=== PATIENT | male | born 1975 | race Caucasian/White ===

== ENCOUNTER 2016-08-05 14:04 | Inpatient (IN) | payer MEDICARE ==
--- NOTE | 2016-08-05 14:40 | HP ---
SUPERVISING PHYSICIAN: Todd Mancini MD CHIEF COMPLAINT: Lesion on bilateral feet. HISTORY OF PRESENT ILLNESS: This is a 41-year-old male patient who has a significant history of uncontrolled diabetes mellitus as well as a significant history of cellulitis to his feet. He was at the [employer] meet two weeks ago where he watched his son compete in [place] and walked on his feet for long periods of time in new shoes and developed a blister on the medial aspects of both the right and left great toe. The sores continued to worsen to the point that he came to see his primary care physician today, Dr. James Gaviria. Dr. Gaviria did some lab at the clinic. His white blood cell count was 19.5 with hemoglobin 15.4, hematocrit 43.6, sedate 73. His blood glucose was 263, BUN 12 , creatinine 1, sodium 136, potassium 4.5, chloride 95. I was called for admission for cellulitis. PAST MEDICAL HISTORY: 1. Diabetes mellitus, type 2. 2. Hypertension. 3. Coronary artery disease. 4. Congestive heart failure of unknown etiology. 5. Moderate depression. 6. Hyperlipidemia. 7. Previous myocardial infarction in 2010. PAST SURGICAL HISTORY: 1. Left elbow surgery. 2. Cardiac stent in 2010. CURRENT MEDICATIONS: Per the EMR and awaiting verification. ALLERGIES: METFORMIN. CODE STATUS: Full. FAMILY HISTORY: Positive for colonic polyps and lung cancer. SOCIAL HISTORY: Patient is disabled due to his heart attack in 2010.The patient chews tobacco. He denies smoking cigarettes, ETOH or illicit drug use. He does have a distant history of IV drug use. REVIEW OF SYSTEMS: GENERAL: Positive for fever and chills. Negative for any weight changes. HEENT: Denies sinus symptoms, ear pain, vision changes or sore throat. RESPIRATORY: Denies wheezing, coughing or shortness of breath. CARDIAC: Denies chest pain, palpitations or tachycardia. GASTROINTESTINAL: Denies nausea, vomiting, diarrhea, or abdominal pain. NEUROLOGIC: Positive for numbness in his feet. Negative for headaches, dizziness, or seizures. PHYSICAL EXAMINATION: VITAL SIGNS: Afebrile. Pulse 96. Blood pressure 113/70. Respiratory rate 18. O2 saturation 91% on room air. GENERAL: This is a 41-year-old, obese, male patient who is lying in his hospital bed. He is in no acute distress. HEENT: Normocephalic, atraumatic. Pupils are equal and reactive. Oropharynx is clear. NECK: Supple without mass. RESPIRATORY: Clear to auscultation bilaterally. CHEST: There is equal rise and fall of the chest with inspiration and expiration. CARDIOVASCULAR: Regular rate and rhythm. ABDOMEN: Rounded, soft, nondistended, nontender. Bowel sounds are positive. EXTREMITIES: He has a large, 8 cm wound to his right medial portion of his foot that extends down to the right great toe. There is a large necrotic area in the middle of it, about 2 cm in diameter, with very dried, hardened skin around it. The erythema extends up to the top of his foot as well as to the heel. It is warm. There is no fluctuance. The left foot has a smaller lesion that extends from the medial portion of his left great toe to the arch that has some erythema. There is no fluctuance. It also has dried skin surrounding the sore. His bilateral pedal pulses are very faint, but they are palpable. LABORATORY: Labs are per history of present illness, plus his hemoglobin A1c is 13.1. ASSESSMENT: 1. Cellulitis of the right and left foot. 2. Leukocytosis with elevated sedrate of 73. 3. Diabetes mellitus, poorly controlled, on insulin and Victoza. 4. Congestive heart failure. 5. Coronary artery disease. 6. Mild depression. PLAN: We will admit the patient to the hospital. I have consulted Dr. Coley. I have started him on vancomycin, Zosyn, and Flagyl. I have repeated labs in the morning. It is to be noted that his Levemir insulin had about one year ago and his Humalog insulin five years ago. I am not quite sure he was taking his insulin as ordered and if he was taking it as ordered, I am not sure it was effective dosing. I have started him on the hospital sliding scale insulin protocol. He usually gets 40 units of Levemir at night. I am going to give him 25 units of Levemir insulin tonight and we will check his sugars tomorrow. I am going to be careful about his dosing because of the inconsistency in his home dosing. I have given him a liter of fluids. I have started him on Protonix for ulcer prophylaxis as well as Lovenox for DVT prophylaxis. We will continue to monitor the patient closely and followup as needed. Dr. Mancini is the collaborating physician and available for consultation. #[id number] [facility]
[2016-08-05] MEDS ORDERED: SODIUM CHLORIDE 0.9% 1000ML 1,000 ML IVS PRN (15:45)
[2016-08-05] MEDS ORDERED: GLUCAGON INJ 1 MG VIAL SUBCU PRN (15:52)
[2016-08-05] MEDS ORDERED: DEXTROSE 50% 25 GM/50 ML SYG IV PRN (15:52)
[2016-08-05] MEDS ORDERED: metroNIDAZOLE IV PREMIX 500MG 500 MG in PREMIX BAG 1 BAG IVPB SCH (16:00)
[2016-08-05] MEDS ORDERED: VANCOMYCIN PER PHARMACY INJ SCH (16:00)
[2016-08-05] MEDS ORDERED: metroNIDAZOLE IV PREMIX 500MG 100 ML IVPB ONE (16:23)
[2016-08-05] MEDS: metroNIDAZOLE IV PREMIX 500MG 500 MG in PREMIX BAG 1 BAG IVPB SCH (16:32)
[2016-08-05] MEDS: IV SET AND CAP CHANGE INJ INJ SCH (16:35)
[2016-08-05] MEDS: INSULIN LISPRO 100 UNITS/ML PEN SUBCU SCH ×2 (17:12→21:28)
[2016-08-05] MEDS ORDERED: PIPERACILLIN/TAZOBACTAM 3.375 GM VIAL IVPB ONE (19:46)
[2016-08-05] MEDS ORDERED: SODIUM CHLORIDE 0.9% 100ML 100 ML IVPB ONE (19:47)
[2016-08-05] MEDS: PIPERACILLIN/TAZOBACTAM 3.375 GM in SODIUM CHLORIDE 0.9% 100ML 100 ML IVPB SCH (19:59)
[2016-08-05] MEDS ORDERED: SODIUM CHLORIDE 0.9% 250ML 250 ML ONE (21:18)
[2016-08-05] MEDS ORDERED: VANCOMYCIN HCL INJ 1,000 MG VIAL IVPB ONE (21:18)
[2016-08-05] MEDS: VANCOMYCIN HCL INJ 1,000 MG in SODIUM CHLORIDE 0.9% 250ML 250 ML IVPB SCH (21:21)
[2016-08-05] MEDS: BIFIDOBACTERIUM INFANTIS 4 MG CAP PO SCH (21:28)
[2016-08-05] MEDS ORDERED: INSULIN DETEMIR 100 UNITS/ML PEN SUBCU ONE ×2 (21:30→23:35)
[2016-08-05] MEDS: PANTOPRAZOLE SODIUM IV 40 MG VIAL IV SCH (23:43)
[2016-08-05] MEDS: ENOXAPARIN SODIUM 40 MG/0.4 ML SYG SUBCU SCH (23:47)
[2016-08-05] MEDS: CHLORHEXIDINE GLUCONATE 4 % 15 ML UD TOP SCH (23:48)
[2016-08-06] MEDS: PIPERACILLIN/TAZOBACTAM 3.375 GM in SODIUM CHLORIDE 0.9% 100ML 100 ML IVPB SCH ×5 (00:05→23:54)
[2016-08-06] MEDS ORDERED: metroNIDAZOLE IV PREMIX 500MG 100 ML IVPB ONE ×4 (00:49→17:23)
[2016-08-06] MEDS: metroNIDAZOLE IV PREMIX 500MG 500 MG in PREMIX BAG 1 BAG IVPB SCH ×3 (01:12→17:03)
[2016-08-06] MEDS: VANCOMYCIN HCL INJ 1,000 MG in SODIUM CHLORIDE 0.9% 250ML 250 ML IVPB SCH ×2 (03:00→10:58)
[2016-08-06] MEDS ORDERED: SODIUM CHLORIDE 0.9% 100ML 100 ML IVPB ONE ×4 (05:33→23:44)
[2016-08-06] MEDS ORDERED: PIPERACILLIN/TAZOBACTAM 3.375 GM VIAL IVPB ONE ×4 (05:33→23:43)
[2016-08-06] MEDS: SODIUM CHLORIDE 0.9% (FLUSH) 10 ML SYG IV PRN (06:00)
[2016-08-06] MEDS: INSULIN LISPRO 100 UNITS/ML PEN SUBCU SCH ×4 (08:03→21:31)
[2016-08-06] MEDS: BIFIDOBACTERIUM INFANTIS 4 MG CAP PO SCH ×2 (08:03→21:31)
[2016-08-06] MEDS ORDERED: SODIUM CHLORIDE 0.9% 250ML 250 ML ONE ×3 (10:35→17:21)
[2016-08-06] MEDS ORDERED: VANCOMYCIN HCL INJ 1,000 MG VIAL IVPB ONE ×2 (10:36→17:21)
[2016-08-06] MEDS: GABAPENTIN 300 MG CAP PO SCH ×2 (10:47→21:35)
[2016-08-06] MEDS: LISINOPRIL 10 MG TAB PO SCH (10:47)
[2016-08-06] MEDS: FUROSEMIDE 40 MG TAB PO SCH (10:47)
[2016-08-06] MEDS: CARVEDILOL 12.5 MG TAB PO SCH ×2 (10:47→21:31)
[2016-08-06] MEDS: INSULIN DETEMIR 100 UNITS/ML PEN SUBCU SCH ×2 (10:49→21:32)
[2016-08-06] MEDS: CITALOPRAM HBR 20 MG TAB PO SCH (10:50)
[2016-08-06] MEDS: LIRAGLUTIDE 1.8 MG SC SCH (10:57)
--- NOTE | 2016-08-06 11:49 | CONS ---
DATE OF CONSULTATION: 08/06/16 REFERRING PHYSICIAN: [facility]. HISTORY OF PRESENT ILLNESS: The patient is a 41-year-old male who was admitted yesterday with cellulitis of his feet. He was noted to have an elevated white blood cell count of 19,[address] Gaviria' clinic yesterday with a blood sugar of 263. He was admitted and placed on IV antibiotics. No culture was obtained as there was no drainage from the area. The patient does state he was wearing new shoes for his whole trip to watch his son through the shot at the [employer] two weeks ago. PAST MEDICAL HISTORY: 1. Diabetes mellitus. 2. Hypertension. 3. Coronary artery disease. 4. Congestive heart failure. 5. Depression. 6. Hyperlipidemia. PAST SURGICAL HISTORY: 1. Cardiac stent placement in 2010 associated with a myocardial infarction 2. Left elbow surgery. CURRENT MEDICATIONS: As listed in the nursing notes. ALLERGIES: METFORMIN. FAMILY HISTORY: Positive for carcinoma of the breast, carcinoma of the lung in a nonsmoking grandfather. History of colonic polyps. There is very little history of diabetes. There is history of hypertension. SOCIAL HISTORY: The patient has dipped, never smoked and does not use alcohol or drugs. He has a history of IV drug use many years ago. REVIEW OF SYSTEMS: Unremarkable. He has had fever and chills, but no weight loss. He denies polyuria, nausea, vomiting, change in bowel habits. PHYSICAL EXAMINATION: GENERAL: The patient is awake, alert, cooperative, in no acute distress. VITAL SIGNS: The patient is currently afebrile, normotensive. HEENT: Sclerae nonicteric. Mucous membranes moist. NECK: Without adenopathy. CHEST: Equal breath sounds bilaterally. HEART: Regular rate and rhythm. ABDOMEN: Soft and benign. EXTREMITIES: The right lower extremity has palpable dorsalis pedis and posterior tibialis pulses. Over the first metatarsal head, there is a large area of necrosis with a small amount of purulent drainage. There is surrounding erythema and a blister that is somewhat ecchymotic appearing which is dorsal to the ulceration. The left foot has a much smaller lesion over the left metatarsal head with no significant erythema currently. LABORATORY: Today, white count is down to 18 and hemoglobin A1c 13. ASSESSMENT: 1. Cellulitis of the right and left foot, right greater than left. RECOMMENDATION: We obtained a culture from the right foot. We will continue the antibiotics pending culture report. Agree with the Lovenox, Protonix and treatment of his blood sugars. #[id number] [facility]
[2016-08-06] MEDS: CHLORHEXIDINE GLUCONATE 4 % 15 ML UD TOP SCH (17:20)
[2016-08-06] MEDS ORDERED: PRAVASTATIN SODIUM 20 MG TAB ONE (17:23)
[2016-08-06] MEDS ORDERED: VANCOMYCIN HCL INJ 500 MG VIAL ONE (18:56)
[2016-08-06] MEDS: VANCOMYCIN HCL INJ 1,000 MG, VANCOMYCIN HCL INJ 250 MG in SODIUM CHLORIDE 0.9% 250ML 25... IVPB SCH (19:00)
[2016-08-06] MEDS: ENOXAPARIN SODIUM 40 MG/0.4 ML SYG SUBCU SCH (21:33)
[2016-08-06] MEDS: PRAVASTATIN SODIUM 20 MG TAB PO SCH (21:34)
[2016-08-06] MEDS: PANTOPRAZOLE SODIUM IV 40 MG VIAL IV SCH (21:34)
[2016-08-07] MEDS: metroNIDAZOLE IV PREMIX 500MG 500 MG in PREMIX BAG 1 BAG IVPB SCH ×3 (00:45→16:52)
[2016-08-07] MEDS: HYDROcodone 7.5MG/APAP 325MG 1 EA TAB PO PRN (02:02)
[2016-08-07] MEDS ORDERED: VANCOMYCIN HCL INJ 500 MG VIAL ONE ×3 (03:07→14:45)
[2016-08-07] MEDS ORDERED: SODIUM CHLORIDE 0.9% 250ML 250 ML ONE ×3 (03:08→14:45)
[2016-08-07] MEDS ORDERED: VANCOMYCIN HCL INJ 1,000 MG VIAL IVPB ONE ×3 (03:08→14:46)
[2016-08-07] MEDS: VANCOMYCIN HCL INJ 1,000 MG, VANCOMYCIN HCL INJ 250 MG in SODIUM CHLORIDE 0.9% 250ML 25... IVPB SCH ×2 (03:15→11:47)
[2016-08-07] MEDS ORDERED: SODIUM CHLORIDE 0.9% 100ML 100 ML IVPB ONE ×6 (05:25→17:19)
[2016-08-07] MEDS ORDERED: PIPERACILLIN/TAZOBACTAM 3.375 GM VIAL IVPB ONE ×5 (05:25→17:18)
[2016-08-07] MEDS: PIPERACILLIN/TAZOBACTAM 3.375 GM in SODIUM CHLORIDE 0.9% 100ML 100 ML IVPB SCH ×3 (05:53→17:53)
[2016-08-07] MEDS: INSULIN LISPRO 100 UNITS/ML PEN SUBCU SCH ×4 (07:59→21:07)
--- NOTE | 2016-08-07 08:02 | PN ---
SUPERVISING PHYSICIAN: James Gaviria MD DATE: 08/06/16 SUBJECTIVE: The patient is asleep in his bed. He awakens easily. I was with Dr. Coley as he examined his feet. Dr. Coley discussed his case with him and the treatment options. He has no complaints of shortness of breath, nausea, vomiting or diarrhea or constipation. OBJECTIVE: VITAL SIGNS: His temperature is 99.7, pulse rate 97, blood pressure 135/86, respiratory rate 16, 02 saturation 92% on room air. GENERAL: This is a 41 year-old obese male who is in no apparent distress. RESPIRATORY: Essentially clear to auscultation bilaterally. CARDIAC: regular rate and rhythm. ABDOMEN: Soft, nondistended, non-tender. Bowel sounds are positive. EXTREMITIES: The wounds to his bilateral lower feet are much improved since yesterday. The redness that extended up onto the top of his right foot is only surrounding the wound area and the redness has substantially decreased on the left foot as well. NEUROLOGICAL: He is awake, alert, and oriented x3. LABORATORY WBCs are down to 16.9 with his neutrophils at 72.3. Chemistries are basically within normal limits with the exception of his glucose has been running between 161 and 288. His preliminary blood cultures showed no growth after 24 hours. All other labs and films have been reviewed via the EMR. ASSESSMENT: 1. Cellulitis of the right and left foot. The right is greater than the left. 2. Leukocytosis. . 3. Diabetes mellitus, poorly controlled, on insulin and Victoza. 4. Congestive heart failure, unknown etiology. 5. Coronary artery disease. 6. Mild depression. PLAN: We will continue present supportive care. I will defer his wound care to Dr. Coley. We walled continue his vancomycin and Zosyn and Flagyl. We obtained a wound culture today so we will monitor the results of those as the become available. I have started all of his home medications except that I have started hospital sliding scale Humalog insulin. His Levemir and Victoza have been restarted. I have ordered a BNP and CBC and sed rate tomorrow. On discharge he will need a referral to Dr. Zaldivar who is a it service manager for shoe inserts and possible diabetic shoes. He will also need a followup with Dr. Soler, his insurance office supervisor. We will continue to follow patient closely and follow as needed. Dr. Gaviria is the collaborating physician available for consultation. #[id number] [facility]
[2016-08-07] MEDS ORDERED: metroNIDAZOLE IV PREMIX 500MG 100 ML IVPB ONE ×3 (08:16→17:18)
[2016-08-07] MEDS: POTASSIUM CHLORIDE 10 MEQ TAB PO SCH (08:34)
[2016-08-07] MEDS: BIFIDOBACTERIUM INFANTIS 4 MG CAP PO SCH ×2 (09:46→20:55)
[2016-08-07] MEDS: CARVEDILOL 12.5 MG TAB PO SCH ×2 (09:47→20:55)
[2016-08-07] MEDS: FUROSEMIDE 40 MG TAB PO SCH (09:47)
[2016-08-07] MEDS: LISINOPRIL 10 MG TAB PO SCH (09:47)
[2016-08-07] MEDS: CHLORHEXIDINE GLUCONATE 4 % 15 ML UD TOP SCH (09:47)
[2016-08-07] MEDS: CITALOPRAM HBR 20 MG TAB PO SCH (09:47)
[2016-08-07] MEDS: GABAPENTIN 300 MG CAP PO SCH ×2 (09:48→20:55)
[2016-08-07] MEDS: LIRAGLUTIDE 1.8 MG SC SCH (09:48)
[2016-08-07] MEDS: INSULIN DETEMIR 100 UNITS/ML PEN SUBCU SCH ×2 (09:49→21:08)
[2016-08-07] MEDS: SODIUM CHLORIDE 0.9% (FLUSH) 10 ML SYG IV PRN (09:51)
[2016-08-07] MEDS: PANTOPRAZOLE SODIUM TAB 40 MG PO SCH (11:49)
--- NOTE | 2016-08-07 19:09 | PN ---
DATE: 08/07/16 SUPERVISING PHYSICIAN: James Gaviria M.D. SUBJECTIVE: The patient is lying in bed. He is asleep. He awakens easily. He has no complaints of shortness of breath, nausea, vomiting, diarrhea or chest pain. OBJECTIVE: VITAL SIGNS: He is afebrile, heart rate 88, blood pressure 122/79, respiratory rate 20, O2 sat is 95%. RESPIRATORY: Essentially clear to auscultation bilaterally. CARDIAC: Regular rate and rhythm. ABDOMEN: Soft, nondistended, non-tender. Bowel sounds are positive. EXTREMITIES: Bilateral pedal pulses are palpable +1 to +2. The left foot has a dressing on it that is dry and intact. The right foot wound has a blister that is fluid-filled and quite larger than it was yesterday. Dr. Coley has aspirated a large amount of purulent sanguinous fluid and has sent it for culture. The erythema around the right foot wound is much improved and the area of eschar has a small portion of it that is starting to drain and softening up. NEUROLOGIC: He is awake, alert and oriented times three. LABORATORY: WBCs are 16.2, ESR is 11. BMP is basically within normal limits with the exception of his glucoses have been running from 150 to 230. Wound culture from yesterday requires further incubation. Preliminary blood cultures after 48 hours show no growth. All other labs and films have been reviewed via the EMR. ASSESSMENT: 1. Cellulitis of the right and left foot, the right is greater than the left. 2. Leukocytosis that is slightly improving. 3. Diabetes mellitus poorly controlled on insulin and Victoza. 4. Congestive heart failure of unknown etiology. 5. Coronary artery disease. 6. Mild depression. PLAN: We will continue present supportive care, including vancomycin, Zosyn and Flagyl. Wound care orders will be per Dr. Coley. He has 2 wound cultures that are now pending. We will monitor those results. I will order a CBC for tomorrow. I have encouraged good pulmonary hygiene. He will need a Dr. Zaldivar , podiatry consultation on discharge for some inserts for shoes. Otherwise we will continue to monitor the patient closely and followup as needed. #[id number] [facility]
[2016-08-07] MEDS: ENOXAPARIN SODIUM 40 MG/0.4 ML SYG SUBCU SCH (20:56)
[2016-08-07] MEDS: PRAVASTATIN SODIUM 20 MG TAB PO SCH (20:56)
[2016-08-07] MEDS: VANCOMYCIN HCL INJ 1,000 MG, VANCOMYCIN HCL INJ 500 MG in SODIUM CHLORIDE 0.9% 250ML 25... IVPB SCH (22:43)
[2016-08-08] MEDS: PIPERACILLIN/TAZOBACTAM 3.375 GM in SODIUM CHLORIDE 0.9% 100ML 100 ML IVPB SCH ×5 (00:45→17:53)
[2016-08-08] MEDS: metroNIDAZOLE IV PREMIX 500MG 500 MG in PREMIX BAG 1 BAG IVPB SCH ×4 (01:41→17:03)
[2016-08-08] MEDS ORDERED: SODIUM CHLORIDE 0.9% 100ML 100 ML IVPB ONE ×4 (05:38→19:58)
[2016-08-08] MEDS ORDERED: PIPERACILLIN/TAZOBACTAM 3.375 GM VIAL IVPB ONE ×4 (05:38→19:57)
[2016-08-08] MEDS: PANTOPRAZOLE SODIUM TAB 40 MG PO SCH (06:31)
[2016-08-08] MEDS ORDERED: metroNIDAZOLE IV PREMIX 500MG 0 ML IVPB ONE (07:37)
[2016-08-08] MEDS ORDERED: VANCOMYCIN HCL INJ 500 MG VIAL ONE ×2 (07:39→19:56)
[2016-08-08] MEDS ORDERED: VANCOMYCIN HCL INJ 1,000 MG VIAL IVPB ONE ×2 (07:40→19:58)
[2016-08-08] MEDS ORDERED: SODIUM CHLORIDE 0.9% 250ML 250 ML ONE ×2 (07:40→19:56)
[2016-08-08] MEDS: INSULIN LISPRO 100 UNITS/ML PEN SUBCU SCH ×4 (07:50→21:30)
[2016-08-08] MEDS: POTASSIUM CHLORIDE 10 MEQ TAB PO SCH (08:06)
[2016-08-08] MEDS: CARVEDILOL 12.5 MG TAB PO SCH ×2 (08:38→20:59)
[2016-08-08] MEDS: GABAPENTIN 300 MG CAP PO SCH ×2 (08:38→20:59)
[2016-08-08] MEDS: LISINOPRIL 10 MG TAB PO SCH (08:38)
[2016-08-08] MEDS: CITALOPRAM HBR 20 MG TAB PO SCH (08:38)
[2016-08-08] MEDS: BIFIDOBACTERIUM INFANTIS 4 MG CAP PO SCH ×2 (08:39→20:59)
[2016-08-08] MEDS: LIRAGLUTIDE 1.8 MG SC SCH (08:39)
[2016-08-08] MEDS: INSULIN DETEMIR 100 UNITS/ML PEN SUBCU SCH ×2 (08:39→21:30)
[2016-08-08] MEDS: FUROSEMIDE 40 MG TAB PO SCH (08:39)
[2016-08-08] MEDS: CHLORHEXIDINE GLUCONATE 4 % 15 ML UD TOP SCH (08:40)
[2016-08-08] MEDS: VANCOMYCIN HCL INJ 1,000 MG, VANCOMYCIN HCL INJ 500 MG in SODIUM CHLORIDE 0.9% 250ML 25... IVPB SCH ×2 (11:10→22:49)
[2016-08-08] MEDS ORDERED: metroNIDAZOLE IV PREMIX 500MG 100 ML IVPB ONE ×3 (12:26→19:57)
[2016-08-08] MEDS: IV SET AND CAP CHANGE INJ INJ SCH (17:12)
[2016-08-08] MEDS: VANCOMYCIN HCL INJ 1,000 MG, VANCOMYCIN HCL INJ 250 MG in SODIUM CHLORIDE 0.9% 250ML 25... IVPB SCH (20:26)
--- NOTE | 2016-08-08 20:28 | PN ---
DATE: 08/08/16 SUPERVISING PHYSICIAN: James Gaviria M.D. SUBJECTIVE: The patient is resting in bed with his feet elevated. He has no significant complaints. He has been afebrile. OBJECTIVE: VITAL SIGNS: T max 99.7, pulse 94, blood pressure 90/61, respirations 20, saturation 96% on room air. I's and O's show a positive balance of 1040 with 3340 in, 2300 out. He has had 1 bowel movement. Weight is 142.4 kg. CHEST: Clear to auscultation. HEART: Regular rate and rhythm. ABDOMEN: Soft but obese, non-tender. Positive bowel sounds. EXTREMITIES: Left foot shows an area of diabetic ulceration which shows to be healing. Right foot wound is significantly larger than the left was viewed by Dr. Coley who reports compared to previous days it looks like the foot is getting better. There were no additional areas of drainage noted or consolidations or fluctuation. Pulses distally are 1 to 2+ bilaterally. NEUROLOGIC: He is awake and oriented times three. LABORATORY: White count is elevated but shows to be improving to 15.2, hemoglobin 15.3, hematocrit 45.5, platelet count 404,000. Differential shows to be without a left shift. Chemistries: No additional laboratory studies for chemistries were completed. His blood sugars have been fairly well steady but continue to be elevated ranging from 125 to 288. MICROBIOLOGY: Wound culture of the right foot shows both gram negative rods and gram positive cocci with final culture results pending. Blood cultures remain negative after 3 days. Wound culture of the right foot preliminary shows no significant growth requiring incubation. RADIOLOGY: There are no radiographic studies to review. ASSESSMENT: 1. Cellulitis of the right foot and left foot, the right being greater than the left showing some improvement after starting on parenteral antibiotics to include Flagyl, Zosyn and vancomycin with preliminary culture results showing gram positive cocci and gram-negative rods. 2. Leukocytosis secondary to number 1 showing improvement after initiation of therapy. 3. Diabetes mellitus poorly controlled on insulin and Victoza. 4. Congestive heart failure, unknown etiology. 5. Coronary artery disease. 6. Mild depression. PLAN: Will continue with vancomycin, Zosyn and Flagyl. We will await final culture results and target antibiotic therapy accordingly. Dr. Coley continues to follow wound care closely. Will plan to repeat laboratory studies in the morning. Anticipate at least another 2 to 3 days of antibiotic therapy at which time the patient will need to see his ob gyn, Dr. Zaldivar, for inserts for his shoes to prevent further ulcerations. Until discharge, will continue to monitor closely and treat appropriately. #[id number] [facility]
[2016-08-08] MEDS: PRAVASTATIN SODIUM 20 MG TAB PO SCH (20:59)
[2016-08-08] MEDS: ENOXAPARIN SODIUM 40 MG/0.4 ML SYG SUBCU SCH (20:59)
[2016-08-08] MEDS: SODIUM CHLORIDE 0.9% (FLUSH) 10 ML SYG IV PRN ×2 (21:02→22:49)
[2016-08-09] MEDS: PIPERACILLIN/TAZOBACTAM 3.375 GM in SODIUM CHLORIDE 0.9% 100ML 100 ML IVPB SCH ×3 (00:50→14:12)
[2016-08-09] MEDS: metroNIDAZOLE IV PREMIX 500MG 500 MG in PREMIX BAG 1 BAG IVPB SCH ×3 (01:51→17:45)
[2016-08-09] MEDS ORDERED: PIPERACILLIN/TAZOBACTAM 3.375 GM VIAL IVPB ONE ×3 (05:46→08:26)
[2016-08-09] MEDS ORDERED: SODIUM CHLORIDE 0.9% 100ML 0 ML IVPB ONE ×2 (05:47→08:24)
[2016-08-09] MEDS: SODIUM CHLORIDE 0.9% (FLUSH) 10 ML SYG IV PRN ×3 (06:07→23:30)
[2016-08-09] MEDS: PANTOPRAZOLE SODIUM TAB 40 MG PO SCH (06:08)
[2016-08-09] MEDS: INSULIN LISPRO 100 UNITS/ML PEN SUBCU SCH ×4 (07:50→21:00)
[2016-08-09] MEDS ORDERED: VANCOMYCIN HCL INJ 500 MG VIAL ONE ×2 (08:22→19:32)
[2016-08-09] MEDS ORDERED: SODIUM CHLORIDE 0.9% 250ML 250 ML ONE ×2 (08:23→19:32)
[2016-08-09] MEDS ORDERED: metroNIDAZOLE IV PREMIX 500MG 100 ML IVPB ONE ×3 (08:24→23:06)
[2016-08-09] MEDS ORDERED: VANCOMYCIN HCL INJ 1,000 MG VIAL IVPB ONE ×2 (08:24→19:33)
[2016-08-09] MEDS ORDERED: SODIUM CHLORIDE 0.9% 100ML 100 ML IVPB ONE (08:26)
[2016-08-09] MEDS: BIFIDOBACTERIUM INFANTIS 4 MG CAP PO SCH ×2 (09:25→21:07)
[2016-08-09] MEDS: GABAPENTIN 300 MG CAP PO SCH ×2 (09:26→21:06)
[2016-08-09] MEDS: POTASSIUM CHLORIDE 10 MEQ TAB PO SCH (09:27)
[2016-08-09] MEDS: CITALOPRAM HBR 20 MG TAB PO SCH (09:27)
[2016-08-09] MEDS: CHLORHEXIDINE GLUCONATE 4 % 15 ML UD TOP SCH (09:27)
[2016-08-09] MEDS: LISINOPRIL 10 MG TAB PO SCH (09:27)
[2016-08-09] MEDS: FUROSEMIDE 40 MG TAB PO SCH (09:27)
[2016-08-09] MEDS: CARVEDILOL 12.5 MG TAB PO SCH ×2 (09:27→21:06)
[2016-08-09] MEDS: LIRAGLUTIDE 1.8 MG SC SCH (09:39)
[2016-08-09] MEDS: INSULIN DETEMIR 100 UNITS/ML PEN SUBCU SCH ×2 (09:43→21:00)
[2016-08-09] MEDS: VANCOMYCIN HCL INJ 1,000 MG, VANCOMYCIN HCL INJ 500 MG in SODIUM CHLORIDE 0.9% 250ML 25... IVPB SCH ×2 (13:30→23:30)
--- NOTE | 2016-08-09 13:34 | PCM.CORE ---
Physician DVT/VTE - Nurse DVT Assessment & Total Each Risk Factor Represents 3 Points: Medical PT with Hx of [place], CHF, Severe infection/sepsis Each Risk Factor Represents 1 Point: Age 41-60 Each Risk Factor is 1 Point: Obesity (BMI >25) DVT Assessment Score: 5 - 5 or more Very High Risk Treatments: Early Ambulation *, Sequential Compression Device Pharmacological: Enoxaparin 40mg SQ Daily
[2016-08-09] MEDS ORDERED: levoFLOXacin 750MG IV 750 MG in PREMIX BAG 1 BAG IVPB SCH (16:00)
[2016-08-09] MEDS: PRAVASTATIN SODIUM 20 MG TAB PO SCH (21:06)
[2016-08-09] MEDS: ENOXAPARIN SODIUM 40 MG/0.4 ML SYG SUBCU SCH (21:06)
--- NOTE | 2016-08-09 21:28 | PN ---
DATE: 08/09/16 SUBJECTIVE: The patient is resting in bed. He has had no nausea, vomiting or diarrhea. He remains afebrile. Dr. Coley did a debridement of the wound yesterday which he tolerated well. OBJECTIVE: VITAL SIGNS: T max is 97.8, pulse 87, blood pressure 128/70, respirations 18, satting 92% on room air. I's and O's show a positive balance of 930 with 2530 in, 1600 out. CHEST: Clear to auscultation. HEART: Regular rate and rhythm. ABDOMEN: Soft, non-tender. Positive bowel sounds. EXTREMITIES: No clubbing, cyanosis or edema. Ulcer on the left foot shows to be essentially unchanged from previous days after Dr. Coley was able to do some de-rashaun of the area. There are no other areas of consolidation or fluctuation. Pulses distally remain adequate at 1+ bilaterally. NEUROLOGIC: He is alert and oriented times three. LABORATORY: White count remains elevated at 15.2 but stable. Platelet count 433,000. Chemistries show normal electrolytes. BUN 15, creatinine 0.93, glucose is fairly well stable between 144 to 241. MICROBIOLOGY: Right foot culture shows Serratia marcescens and Group B Strep with both being sensitive to Levaquin. Please refer to the final results for full details. The wound culture on the right foot continues to show gram positive cocci but needs additional workup. ASSESSMENT: 1. Cellulitis of the right foot and left foot with the right being greater than the left slowly improving with starting on parenteral antibiotics that include initially Flagyl, Zosyn and vancomycin with culture results showing a Serratia marcescens and Group B Streptococcus and continued culture on the right foot showing gram positive cocci. Based off sensitivity reports, the patient is going to be changed to Levaquin and continued on vancomycin and Flagyl. 2. Leukocytosis, persistent secondary to number 1. 3. Diabetes mellitus poorly controlled on insulin and Victoza. 4. Congestive heart failure, unknown etiology. 5. Coronary artery disease. 6. Mild depression. PLAN: Will modify the antibiotic therapy today to include Flagyl, vancomycin and stop the Zosyn and initiate Levaquin. Will continue to await the final results of the right foot culture. Dr. Coley continues with wound management. Will monitor labs accordingly. Will anticipate probably another 2 to 3 days of antibiotics, hopefully to be discharged home soon likely requiring PICC line for additional antibiotic therapy. Will have to get an MRI in the morning of the right foot with concerns for osteomyelitis. Until discharge, will continue to monitor the patient closely and treat appropriately. #[id number] [facility]
[2016-08-10] MEDS ORDERED: TEMAZEPAM 15 MG CAP PO ONE (00:07)
[2016-08-10] MEDS: metroNIDAZOLE IV PREMIX 500MG 500 MG in PREMIX BAG 1 BAG IVPB SCH ×2 (01:30→08:39)
[2016-08-10] MEDS: PANTOPRAZOLE SODIUM TAB 40 MG PO SCH (06:36)
[2016-08-10] MEDS: INSULIN LISPRO 100 UNITS/ML PEN SUBCU SCH ×2 (08:13→12:15)
[2016-08-10] MEDS: POTASSIUM CHLORIDE 10 MEQ TAB PO SCH (08:13)
[2016-08-10] MEDS ORDERED: VANCOMYCIN HCL INJ 500 MG VIAL ONE (08:29)
[2016-08-10] MEDS ORDERED: SODIUM CHLORIDE 0.9% 250ML 250 ML ONE (08:30)
[2016-08-10] MEDS ORDERED: metroNIDAZOLE IV PREMIX 500MG 100 ML IVPB ONE (08:30)
[2016-08-10] MEDS ORDERED: VANCOMYCIN HCL INJ 1,000 MG VIAL IVPB ONE (08:31)
[2016-08-10] MEDS: GABAPENTIN 300 MG CAP PO SCH (08:41)
[2016-08-10] MEDS: HYDROcodone 7.5MG/APAP 325MG 1 EA TAB PO PRN (08:41)
[2016-08-10] MEDS: LISINOPRIL 10 MG TAB PO SCH (08:41)
[2016-08-10] MEDS: BIFIDOBACTERIUM INFANTIS 4 MG CAP PO SCH (08:41)
[2016-08-10] MEDS: INSULIN DETEMIR 100 UNITS/ML PEN SUBCU SCH (08:42)
[2016-08-10] MEDS: CITALOPRAM HBR 20 MG TAB PO SCH (08:42)
[2016-08-10] MEDS: FUROSEMIDE 40 MG TAB PO SCH (08:42)
[2016-08-10] MEDS: CARVEDILOL 12.5 MG TAB PO SCH (08:42)
[2016-08-10] MEDS: LIRAGLUTIDE 1.8 MG SC SCH (08:42)
[2016-08-10] MEDS: CHLORHEXIDINE GLUCONATE 4 % 15 ML UD TOP SCH (08:45)
[2016-08-10] MEDS: VANCOMYCIN HCL INJ 1,000 MG, VANCOMYCIN HCL INJ 500 MG in SODIUM CHLORIDE 0.9% 250ML 25... IVPB SCH (11:49)
--- NOTE | 2016-08-10 12:07 | MRI ---
Study: MRI of the Right Foot. Indication: possible osteo of right foot Technique: Multiplanar, multi sequence MRI of the right foot was obtained without intravenous contrast. Comparison: None. Findings: Extensive cellulitis of the medial aspect of the forefoot and most pronounced plantar to the first metatarsal and first MTP joint. There does appear to be skin ulceration plantar to this site. No organized/drainable fluid collection identified, however developing phlegmon suspected. There is mild marrow edema within the medial margin of the head of the first metatarsal as well as within the bipartite medial sesamoid. These changes could indicate osteomyelitis or could be degenerative/stress related. Mild osteoarthritis first MTP joint. Moderate changes first IP joint. Mild fluid distention first intermetatarsal bursa. Mild myositis throughout the deep plantar musculature of the forefoot. Lisfranc ligament intact. No appreciable tear of the distal flexor or extensor tendons or plantar fascia. Mild marrow edema in the plantar aspect of the navicular bone is likely degenerative in etiology. Mild subchondral marrow change at the base of the first metatarsal. Impression: Cellulitis, phlegmon, and skin ulceration of the medial aspect of the forefoot. Mild marrow changes of the first metatarsal head and bipartite medial sesamoid noted with differential considerations as above. Additional findings as above. Electronically signed by: James Purcell MD 08/10/2016 12:07 PM CDT Workstation: [id number]
[2016-08-10 15:09] VITALS: BP 130/75; TEMP 97; O2SAT 91
--- NOTE | 2016-08-16 16:37 | DS ---
SUPERVISING PHYSICIAN: James Gaviria MD DISCHARGE DIAGNOSIS: 1. Cellulitis of the right foot and left foot with the right being greater than the left showing improvement after initiation of parenteral antibiotics to include Flagyl, Zosyn and vancomycin with culture results showing a Serratia marcescens, a Group B Streptococcus and staphylococcal non-MRSA with MRI evidence of osteomyelitis involving the first metatarsal on the right foot.. 2. Leukocytosis secondary to number 1 with evidence of osteomyelitis on MRI. 3. Diabetes mellitus poorly controlled on insulin and Victoza. 4. Congestive heart failure, unknown etiology. 5. Coronary artery disease. 6. Mild depression. HISTORY OF PRESENT ILLNESS: Mr. Victor is a 41-year-old male patient who has a significant history of uncontrolled diabetes mellitus as well as a significant history of cellulitis to his feet. He was at the [employer] meet two weeks ago while watching his son compete in [place] and walked on his feet for long periods of time with new shoes and developed a blister on the medial aspects of both the right and left great toe. The sores continued to worsen to the point that he came to see his primary care physician today, Dr. James Gaviria on date of admission. Dr. Gaviria did lab at the clinic. His noted his white blood count to be19.5. At that point, he was admitted to the medical/ surgical floor for cellulitis of both feet with right being greater than the left with initiation of antibiotic therapy. LABORATORY: Initial white count on admission was 16.2. This persisted through discharge and at discharge was 15.2. His hemoglobin and hematocrit were stable at 15.1 and 45.6 as well as platelet count within normal limits at 424,000. Differential did show a mild left shift, he had elevated ESR of 19 at discharge. Chemistries on admission showed electrolytes to be within normal limits with potassium 4.1, BUN 15, creatinine 0.95, liver functions showed to be within normal limits. Blood sugars ranged from 113 to 288. At time of discharge, electrolytes were within normal limits. Urinalysis showed 500 glucose and dipstick with trace leukoesterase, otherwise within normal limits. He had 3 vancomycin troughs, initially on 08/06 was 19.3, 08/07 was 19 and was 11.4. MICROBIOLOGY: Wound cultures of the right foot showed 3 different species with Staphylococcus aureus, non-MRSA, serratia marcescens and a strep group B with sensitive pattern showing the staph resistant only to Benzylpenicillin with the serratia marcescens showing sensitive to levofloxacin as well as the group B sensitive to ampicillin with the serratia marcescens being resistant to Augmentin. Please refer to that final results for full details and sensitivity report. He had 2 sets of blood cultures that remained negative after 5 days. RADIOLOGY: He had x-rays in the clinic. On admission to the medical/surgical floor, the only x-rays performed was an MRI of the right foot and per radiology interpretation there was cellulitis, phlegmon and skin ulceration of the medial aspect of the forefoot with mild marrow changes of the first metatarsal head and bipartite medial sesamoid noted with concerns for osteomyelitis. Please refer to that final report for full details. HOSPITAL COURSE: Mr. Victor was admitted as noted in history of present illness and started on vancomycin per pharmacy protocol as well as Levaquin and Flagyl. Clinically, he was slow to progress. Dr. Coley was consulted. He did a debridement and assisted with wound management. On date of discharge, the patient had stabilized and was noted to have possible osteomyelitis. Dr. Villalobos was contacted by phone and recommended the patient be discharged on continuation of antibiotics to include doxycycline, levofloxacin, and Flagyl as the sensitivity reports all showed all 3 organisms were sensitive to current medication regimen. PLAN: The patient was discharged with instructions to followup with Dr. Gaviria as scheduled and to resume his home medications as directed and start new prescriptions as noted. He was encouraged to keep pressure off his left foot when possible and elevate when he was in sitting position. He could shower but no tub baths. Wound care was to be arranged by Dr. Gaviria office once seen in followup. He is to return to the hospital should he have any concerning symptoms. He was encouraged to keep the wound covered with Xeroform 4 x 4s. Discharge diet: diabetic diet. Activity at discharge was increased to activity as tolerated with offloading shoes if possible. Again, keep the leg elevated when possible. Prescriptions as discharge: 1. Align 4 mg twice a day. 2. Doxycycline 100 mg twice a day, #50. 3. Levaquin 750 mg, #30. 4. Flagyl 500 mg 3 times a day , #90. CONDITION ON DISCHARGE: Stable and improved. [facility][id number] [facility]
== END 2016-08-10 16:55 | disposition home or self-care (01) | DRG 603 ==
LOC: MS 14:04
PROVIDERS: ADMIT Family Medicine; ATTEND Nurse Practitioner Family
PROC: 0HDMXZZ Extraction of Right Foot Skin, External Approach (ICD-10-PCS; principal; 2016-08-08)
DX: L03.115 Cellulitis of right lower limb (principal); M86.171 Other acute osteomyelitis, right ankle and foot; L03.116 Cellulitis of left lower limb; I50.9 Heart failure, unspecified; I25.10 Atherosclerotic heart disease of native coronary artery without angina pectoris; F32.9 Major depressive disorder, single episode, unspecified; I11.0 Hypertensive heart disease with heart failure; E78.5 Hyperlipidemia, unspecified; B95.1 Streptococcus, group B, as the cause of diseases classified elsewhere; B96.89 Other specified bacterial agents as the cause of diseases classified elsewhere; E11.621 Type 2 diabetes mellitus with foot ulcer; L97.529 Non-pressure chronic ulcer of other part of left foot with unspecified severity; L97.519 Non-pressure chronic ulcer of other part of right foot with unspecified severity; E11.65 Type 2 diabetes mellitus with hyperglycemia; F17.220 Nicotine dependence, chewing tobacco, uncomplicated; E66.9 Obesity, unspecified; I25.2 Old myocardial infarction; Z88.8 Allergy status to other drugs, medicaments and biological substances; Z95.5 Presence of coronary angioplasty implant and graft; Z79.84 Long term (current) use of oral hypoglycemic drugs; B95.61 Methicillin susceptible Staphylococcus aureus infection as the cause of diseases classified elsewhere; E11.69 Type 2 diabetes mellitus with other specified complication; Z16.11 Resistance to penicillins; Z16.39 Resistance to other specified antimicrobial drug

== ENCOUNTER 2017-01-25 23:04 | Inpatient (IN) | payer MEDICARE ==
[2017-01-25] MEDS ORDERED: PIPERACILLIN/TAZOBACTAM 3.375 GM in SODIUM CHLORIDE 0.9% 100ML 100 ML IVPB ONE (23:36)
[2017-01-25] MEDS ORDERED: SODIUM CHLORIDE 0.9% 100ML 100 ML IVPB ONE (23:38)
[2017-01-25] MEDS ORDERED: PIPERACILLIN/TAZOBACTAM 3.375 GM VIAL IVPB ONE (23:38)
[2017-01-25] MEDS ORDERED: SODIUM CHLORIDE 0.9% 1000ML 1,000 ML IVS ONE (23:39)
--- NOTE | 2017-01-25 23:41 | ED.PDOC ---
History of Present Illness - General Chief Complaint: General Stated Complaint: left foot blister Time Seen by Provider: 01/25/17 23:34 Source: patient, RN notes reviewed, Vital Signs reviewed Exam Limitations: no limitations - History of Present Illness Timing/Duration: 24 hours Severity: moderate Improving Factors: nothing Worsening Factors: nothing Associated Symptoms: fever/chills - pt with spreading redness and ulceration to all toes of left foot. states that has had similar to the right foot. also reports that BS has been running high due to medication non compliance. pt has been putting feet in jeffery water today as well. Allergies/Adverse Reactions: Allergies Metformin Adverse Reaction (Intermediate, Verified 02/22/15 10:17) Diarrhea Home Medications: Ambulatory Orders Carvedilol [Coreg] 25 mg PO BID 11/27/14 Furosemide [Lasix] 40 mg PO DAILY 11/27/14 Gabapentin [Neurontin] 900 mg PO BEDTIME 11/27/14 Liraglutide [Victoza] 1.8 mg SC DAILY 11/27/14 Lisinopril 20 mg PO DAILY 11/27/14 Potassium Chloride [Potassium Chloride ER] 10 meq PO DAILYBK 11/27/14 Pravastatin Sodium [Pravachol] 40 mg PO BEDTIME 11/27/14 Citalopram Hydrobromide [Celexa] 20 mg PO DAILY 02/22/15 Insulin Detemir [Levemir] 40 unit SUBCU BID 02/22/15 Aspirin 325 mg PO QD 08/05/16 Gabapentin 300 mg PO DAILY 08/05/16 Insulin Lispro (Human) [Humalog] 15 units SC AC 08/05/16 Bifidobacterium Infantis [Align] 4 mg PO BID 08/10/16 Doxycycline Hyclate [Vibramycin] 100 mg PO BID #60 cap 08/10/16 Levofloxacin [Levaquin] 750 mg PO DAILY #30 tab 08/10/16 metroNIDAZOLE [Flagyl] 500 mg PO TID #90 tab 08/10/16 Review of Systems - Review of Systems Constitutional: States: chills, fever, malaise EENTM: Denies: double vision, nose congestion, throat pain Respiratory: Denies: cough, orthopnea, short of breath Cardiology: Denies: chest pain, palpitations Gastrointestinal/Abdominal: Denies: constipation, diarrhea Genitourinary: Denies: dysuria Musculoskeletal: Denies: joint pain Skin: States: lesions, rash Neurological: Denies: headache, weakness Endocrine: States: increased urine Hematologic/Lymphatic: Denies: blood clots All other Systems: Reviewed and Negative Past Medical History (General) - Patient Medical History Hx Seizures: No Hx Stroke: No Hx Dementia: No Hx Asthma: No Hx of COPD: No Hx Cardiac Disorders: Yes Hx Congestive Heart Failure: Yes Hx Pacemaker: No Hx Hypertension: Yes Hx Thyroid Disease: No Hx Diabetes: Yes Hx Gastroesophageal Reflux: No Hx Renal Disease: No Hx Cancer: No Hx of HIV: No Hx Hepatitis C: No Hx MRSA: No Surgical History: other - Vaccination History Hx Tetanus, Diphtheria Vaccination: No Hx Influenza Vaccination: No - Social History Hx Tobacco Use: Yes Hx Chewing Tobacco Use: Yes Hx Alcohol Use: No Hx Substance Use: Yes - meth 2007 Hx Substance Use Treatment: No Hx Depression: No Hx Physical Abuse: No Hx Emotional Abuse: No Family Medical History - Family History Grandparents Family History: No Known Living Status: Hx Family Cancer: Yes - cancer Physical Exam - Physical Exam General Appearance: Alert, Anxious Eye Exam: bilateral normal Ears, Nose, Throat: hearing grossly normal, normal ENT inspection, other - dry membranes Neck: non-tender, full range of motion, supple Respiratory: chest non-tender, lungs clear, normal breath sounds Cardiovascular/Chest: normal peripheral pulses, tachycardia Peripheral Pulses: dorsalis pedis,right: 2+, dorsalis pedis,left: 2+, posterior tibialis,right: 2+, posterior tibialis,left: 2+ Gastrointestinal/Abdominal: non tender, soft Back Exam: normal inspection, no CVA tenderness Extremity: normal range of motion, other - tenderness to the left foot, erythema to mid foot, ulceration/ blistering of all toes with discharge Neurologic: no motor/sensory deficits, alert Skin Exam: rash Lymphatic: no adenopathy Departure - Departure Clinical Impression: Cellulitis and abscess of foot, Hyperglycemia without ketosis, Neutrophilic leukocytosis, Generally unwell Time of Disposition: :15 Disposition: Discharge to Home or Self Care Condition: Fair Departure Forms: ED Discharge - Pt. Copy, Patient Portal Self Enrollment Referrals: James Gaviria MD [Primary Care Provider] - 1-2 Weeks Home Medications: Ambulatory Orders Carvedilol [Coreg] 25 mg PO BID 11/27/14 Furosemide [Lasix] 40 mg PO DAILY 11/27/14 Gabapentin [Neurontin] 900 mg PO BEDTIME 11/27/14 Liraglutide [Victoza] 1.8 mg SC DAILY 11/27/14 Lisinopril 20 mg PO DAILY 11/27/14 Potassium Chloride [Potassium Chloride ER] 10 meq PO DAILYBK 11/27/14 Pravastatin Sodium [Pravachol] 40 mg PO BEDTIME 11/27/14 Citalopram Hydrobromide [Celexa] 20 mg PO DAILY 02/22/15 Insulin Detemir [Levemir] 40 unit SUBCU BID 02/22/15 Aspirin 325 mg PO QD 08/05/16 Gabapentin 300 mg PO DAILY 08/05/16 Insulin Lispro (Human) [Humalog] 15 units SC AC 08/05/16 Bifidobacterium Infantis [Align] 4 mg PO BID 08/10/16 Doxycycline Hyclate [Vibramycin] 100 mg PO BID #60 cap 08/10/16 Levofloxacin [Levaquin] 750 mg PO DAILY #30 tab 08/10/16 metroNIDAZOLE [Flagyl] 500 mg PO TID #90 tab 08/10/16 Decision To Admit - Decistion To Admit Decision to Admit Date: 01/26/17 Decision to Admit Time: 01:15
--- NOTE | 2017-01-26 01:56 | HP ---
CHIEF COMPLAINT: Left foot blister. HISTORY OF PRESENT ILLNESS: This is a 41-year-old male patient who has an extensive history of cellulitis of the lower legs as well as poorly controlled diabetes mellitus. He presented to the Emergency Room on date of admission with fever and chills and redness and ulceration to all the toes on his left foot. He has had a similar problem with his right foot and he is presently being treated by the wound care clinic in [place] and Dr. Troy. His blood sugars had also been running very high due to the medication and his infection as well as he has not taken his regular medications because he has "had to move." in the Emergency Room, he was found to have an elevated WBC of 13.2. His sodium was slightly low at 129. Potassium 4, chloride 91, glucose 480, BUN 10, creatinine 0.96, alkaline phosphatase was 134. A wound culture was obtained of the left foot. His left foot on exam showed erythema to the midfoot with ulceration and blistering of all toes with some discharge. He was admitted to the hospital. He was given Zosyn. His hemoglobin A1c came back at 11.8. PAST MEDICAL HISTORY: 1. Diabetes mellitus, type 2. 2. Hypertension. 3. Coronary artery disease. 4. Congestive heart failure of unknown etiology. 5. Moderate depression. 6. Hyperlipidemia. 7. Myocardial infarction in 2010. PAST SURGICAL HISTORY: 1. Left elbow surgery. 2. Cardiac stent in 2010. OUTPATIENT MEDICATIONS: Per the EMR and awaiting verification. ALLERGIES: METFORMIN. FAMILY HISTORY: Positive for colonic polyps and lung cancer. SOCIAL HISTORY: The patient is disabled due to his heart attack in 2010. He does chew tobacco. He denies smoking cigarettes, using ETOH or illicit drugs. He does have a distant history of IV drug use. REVIEW OF SYSTEMS: GENERAL: Positive for fever and chills. Negative for any weight changes. HEENT: Negative for sinus symptoms, ear pain, vision changes or sore throat. RESPIRATORY: Negative for wheezing, coughing or shortness of breath. CARDIAC: Negative for chest pain, palpitations or tachycardia. GASTROINTESTINAL: Negative for nausea, vomiting, diarrhea, or abdominal pain. NEUROLOGIC: Positive for numbness in his feet. Negative for headache, dizziness or seizures. EXTREMITIES: As per history of present illness. PHYSICAL EXAMINATION: VITAL SIGNS: Afebrile. Pulse 111. Blood pressure 150/105. Respiratory rate 20. O2 saturation 92% on room air. I/O: Negative balance of 875. GENERAL: This is a 41-year-old male patient who is lying in his hospital bed. He is slightly lethargic. He is in no acute distress. HEENT: Normocephalic, atraumatic. Pupils are equal and reactive. Oropharynx is clear. NECK: Supple without mass. No discernible jugular venous distention. RESPIRATORY: Clear to auscultation bilaterally. CHEST: There is equal rise and fall of the chest with inspiration and expiration. CARDIOVASCULAR: Regular rate and rhythm. ABDOMEN: Obese, round, soft, nondistended, nontender. Bowel sounds are positive. EXTREMITIES: He has a dressing to the bottom and lateral portion of his right foot that is dry and intact. He does have erythema to the entire right foot. There is no notable drainage. His right toes are cool to the touch. His left foot is erythematous over the entire foot. At the end of all of his toes on the left side have large blisters to the distal portion of the toes and there is some drainage to several areas on his left great toe. Bilateral pedal pulses are +2 bilaterally. Both feet are somewhat tender to palpation. NEUROLOGIC: Awake, alert and oriented times three. LABORATORY: As per history of present illness. We are awaiting a wound culture on the left fourth toe. ASSESSMENT: 1. Cellulitis of the left and right foot, currently the right foot is being followed by wound care in [place]. 2. Leukocytosis with C-reactive protein pending. 3. Diabetes mellitus, type 2, poorly controlled, presently on insulin as well as Victoza with a hemoglobin A1c of 11.8. 4. Congestive heart failure of unknown etiology. 5. Coronary artery disease with a history of myocardial infarction. 6. Mild depression. 7. Smokeless tobacco abuse. 8. Poor medical compliance. 9. Hypertension, poorly controlled with poor medical compliance. PLAN: We will admit the patient to the hospital. I will most likely consult Dr. Coley. He has been started on Zosyn. I will add vancomycin per pharmacy protocol and await wound cultures. We will restart his home medications as soon as they are verified. I have discussed at length with him compliance with his diabetic regimen and we have discussed the complications associated with poorly controlled diabetes. I have given him an extra dose of Coreg and lisinopril due to his elevated blood pressure and hopefully we can get his home medications restarted as soon as possible. He has been started on Lovenox for DVT prophylaxis as well as Protonix for ulcer prophylaxis. I have ordered a CRP and an ESR. Otherwise, we will continue to monitor the patient closely and follow as needed. Dr. Mancini is the collaborating physician and available for consultation. [facility][id number] [facility]
[2017-01-26] MEDS ORDERED: MAGNESIUM HYDROXIDE 30 ML UD PO PRN (02:06)
[2017-01-26] MEDS ORDERED: LEVALBUTEROL NEBS 1.25 MG/3 ML VIAL INH PRN (02:06)
[2017-01-26] MEDS ORDERED: GLUCAGON INJ 1 MG VIAL SUBCU PRN (02:06)
[2017-01-26] MEDS ORDERED: DEXTROSE 50% 25 GM/50 ML SYG IV PRN (02:06)
[2017-01-26] MEDS ORDERED: HYDROcodone 5MG/APAP 325MG 1 EA TAB PO PRN (02:06)
[2017-01-26] MEDS ORDERED: SODIUM CHLORIDE 0.9% (FLUSH) 10 ML SYG IV PRN (02:06)
[2017-01-26] MEDS ORDERED: INSULIN DETEMIR 100 UNITS/ML PEN SUBCU ONE ×2 (02:37→20:40)
[2017-01-26] MEDS ORDERED: LISINOPRIL 5 MG TAB ONE (03:18)
[2017-01-26] MEDS ORDERED: INSULIN LISPRO 100 UNITS/ML PEN SUBCU ONE ×2 (03:30)
[2017-01-26] MEDS ORDERED: LISINOPRIL 5 MG TAB PO ONE (03:30)
[2017-01-26] MEDS: ALBUTEROL SULFATE 2.5 MG/3 ML VIAL NEB SCH ×5 (04:08→20:21)
[2017-01-26] MEDS ORDERED: PIPERACILLIN/TAZOBACTAM 3.375 GM VIAL IVPB ONE ×4 (05:15→18:22)
[2017-01-26] MEDS ORDERED: SODIUM CHLORIDE 0.9% 100ML 100 ML IVPB ONE ×3 (05:15→18:23)
[2017-01-26] MEDS ORDERED: SODIUM CHL 0.9% 100ML MINI-BAG 100 ML IVPB ONE (06:21)
[2017-01-26] MEDS: SODIUM CHLORIDE 0.9% 1000ML 1,000 ML IVS PRN ×2 (06:28→15:01)
[2017-01-26] MEDS: PIPERACILLIN/TAZOBACTAM 3.375 GM in SODIUM CHLORIDE 0.9% 100ML 100 ML IVPB SCH ×3 (06:29→18:27)
[2017-01-26] MEDS ORDERED: OMEPRAZOLE CAP 20 MG CAP PO SCH (06:30)
[2017-01-26] MEDS: INSULIN LISPRO 100 UNITS/ML PEN SUBCU SCH ×4 (07:29→20:52)
[2017-01-26] MEDS ORDERED: ALBUTEROL SULFATE 2.5 MG/3 ML VIAL NEB ONE (08:09)
[2017-01-26] MEDS: CHLORHEXIDINE GLUC 4% 15ML 45 ML, WATER FOR IRRIGATION 1,000 ML TOP SCH ×2 (09:33)
[2017-01-26] MEDS ORDERED: CARVEDILOL 12.5 MG TAB PO ONE (12:45)
[2017-01-26] MEDS ORDERED: LISINOPRIL 10 MG TAB PO ONE (12:45)
[2017-01-26] MEDS ORDERED: ENOXAPARIN SODIUM 40 MG/0.4 ML SYG SUBCU SCH (13:00)
[2017-01-26] MEDS ORDERED: PANTOPRAZOLE SODIUM IV 40 MG VIAL IV SCH (13:00)
[2017-01-26] MEDS ORDERED: metroNIDAZOLE IV PREMIX 500MG 100 ML IVPB ONE (14:55)
[2017-01-26] MEDS: metroNIDAZOLE IV PREMIX 500MG 500 MG in PREMIX BAG 1 BAG IVPB SCH ×2 (14:56→22:37)
[2017-01-26] MEDS ORDERED: VANCOMYCIN HCL INJ 1,000 MG VIAL IVPB ONE (15:42)
[2017-01-26] MEDS ORDERED: SODIUM CHLORIDE 0.9% 500ML 500 ML ONE (15:42)
[2017-01-26] MEDS: VANCOMYCIN HCL INJ 1,750 MG in SODIUM CHLORIDE 0.9% 500ML 500 ML IVPB SCH (15:52)
[2017-01-26] MEDS ORDERED: VANCOMYCIN PER PHARMACY INJ SCH (16:00)
[2017-01-26] MEDS ORDERED: ASPIRIN TABLET 325 MG TAB PO SCH (19:00)
[2017-01-26] MEDS ORDERED: PRAVASTATIN SODIUM 20 MG TAB ONE (20:38)
[2017-01-26] MEDS ORDERED: CARVEDILOL 12.5 MG TAB ONE (20:38)
[2017-01-26] MEDS ORDERED: SODIUM CHLORIDE 0.9% 10 ML VIAL ONE (20:39)
[2017-01-26] MEDS: GABAPENTIN 300 MG CAP PO SCH (20:55)
[2017-01-26] MEDS: SODIUM CHLORIDE 0.9% (FLUSH) 10 ML SYG IV SCH (20:57)
[2017-01-26] MEDS ORDERED: NON-FORMULARY MEDICATION 1 EA MIS (Pravastatin Sodium [Pravachol] 40 MG) PO SCH (21:00)
[2017-01-26] MEDS ORDERED: NON-FORMULARY MEDICATION 1 EA MIS (Carvedilol [Coreg] 25 MG) PO SCH (21:00)
[2017-01-26] MEDS ORDERED: INSULIN DETEMIR 40 UNIT SUBCU SCH (21:00)
[2017-01-27] MEDS ORDERED: PIPERACILLIN/TAZOBACTAM 3.375 GM VIAL IVPB ONE ×5 (00:04→23:20)
[2017-01-27] MEDS ORDERED: SODIUM CHLORIDE 0.9% 100ML 100 ML IVPB ONE ×5 (00:05→23:20)
[2017-01-27] MEDS: PIPERACILLIN/TAZOBACTAM 3.375 GM in SODIUM CHLORIDE 0.9% 100ML 100 ML IVPB SCH ×5 (00:13→23:54)
[2017-01-27] MEDS ORDERED: metroNIDAZOLE IV PREMIX 500MG 100 ML IVPB ONE ×3 (00:24→19:28)
[2017-01-27] MEDS ORDERED: SODIUM CHLORIDE 0.9% 500ML 500 ML ONE ×2 (00:28→08:42)
[2017-01-27] MEDS ORDERED: VANCOMYCIN HCL INJ 1,000 MG VIAL IVPB ONE ×2 (00:29→08:43)
[2017-01-27] MEDS ORDERED: PANTOPRAZOLE SODIUM TAB 40 MG PO ONE (00:43)
[2017-01-27] MEDS: VANCOMYCIN HCL INJ 1,750 MG in SODIUM CHLORIDE 0.9% 500ML 500 ML IVPB SCH ×2 (03:32→16:33)
[2017-01-27] MEDS: SODIUM CHLORIDE 0.9% 1000ML 1,000 ML IVS PRN ×2 (03:32→12:20)
[2017-01-27] MEDS: PANTOPRAZOLE SODIUM TAB 40 MG PO SCH (05:54)
[2017-01-27] MEDS: metroNIDAZOLE IV PREMIX 500MG 500 MG in PREMIX BAG 1 BAG IVPB SCH ×3 (07:01→23:25)
[2017-01-27] MEDS: POTASSIUM CHLORIDE 10 MEQ TAB PO SCH (07:49)
[2017-01-27] MEDS: INSULIN LISPRO 100 UNITS/ML PEN SUBCU SCH ×5 (07:49→21:09)
[2017-01-27] MEDS: ALBUTEROL SULFATE 2.5 MG/3 ML VIAL NEB SCH ×2 (08:20→13:12)
[2017-01-27] MEDS ORDERED: LIRAGLUTIDE 1.8 MG SC SCH (09:00)
[2017-01-27] MEDS ORDERED: INSULIN DETEMIR 100 UNITS/ML PEN SUBCU SCH (09:00)
[2017-01-27] MEDS: GABAPENTIN 300 MG CAP PO SCH ×2 (09:28→20:31)
[2017-01-27] MEDS: FUROSEMIDE 40 MG TAB PO SCH (09:28)
[2017-01-27] MEDS: ASPIRIN TABLET 325 MG TAB PO SCH (09:28)
[2017-01-27] MEDS: LISINOPRIL 10 MG TAB PO SCH (09:28)
[2017-01-27] MEDS: CARVEDILOL 12.5 MG TAB PO SCH ×2 (09:29→20:31)
[2017-01-27] MEDS: ENOXAPARIN SODIUM 40 MG/0.4 ML SYG SUBCU SCH (09:29)
[2017-01-27] MEDS: SODIUM CHLORIDE 0.9% (FLUSH) 10 ML SYG IV SCH ×2 (09:32→20:32)
[2017-01-27] MEDS: IV SET AND CAP CHANGE INJ INJ SCH (09:32)
[2017-01-27] MEDS: CHLORHEXIDINE GLUC 4% 15ML 45 ML, WATER FOR IRRIGATION 1,000 ML TOP SCH ×2 (09:54)
--- NOTE | 2017-01-27 12:23 | US ---
EXAM DESCRIPTION: Extremity,Lower [place] Arteries CLINICAL HISTORY: 41 years Male, cellulitis COMPARISON: None. TECHNIQUE: 2-D grayscale and color arterial duplex Doppler evaluation of the bilateral lower extremities is performed. FINDINGS: No significant calcified plaque is seen throughout the arterial vasculature. There is normal mostly triphasic flow from proximal to distal in both lower extremities with no elevated velocities. No arterial occlusion is seen. IMPRESSION: Unremarkable arterial ultrasound evaluation of the bilateral lower extremities. Electronically signed by: Maynor Jones MD 01/27/2017 12:21 PM PODIATRIC MEDICINE DOCTOR
--- NOTE | 2017-01-27 12:24 | US ---
EXAM DESCRIPTION: Venous,Lower Extremity RT CLINICAL HISTORY: cellulitis COMPARISON: None. TECHNIQUE: 2D grayscale and color venous duplex Doppler evaluation of the lower extremity are obtained from groin to calf. FINDINGS: There is normal flow, augmentation to flow, and compressibility of the deep venous vasculature of the right lower extremity with no ultrasound evidence of deep venous thrombosis. IMPRESSION: No ultrasound evidence of deep venous thrombosis . Electronically signed by: Maynor Jones MD 01/27/2017 12:23 PM COMMERCIAL ESCROW ASSISTANT
--- NOTE | 2017-01-27 12:24 | US ---
EXAM DESCRIPTION: Venous,Lower Extremity LT CLINICAL HISTORY: cellulitis COMPARISON: None. TECHNIQUE: 2D grayscale and color venous duplex Doppler evaluation of the lower extremity are obtained from groin to calf. FINDINGS: There is normal flow, augmentation to flow, and compressibility of the deep venous vasculature of the left lower extremity with no ultrasound evidence of deep venous thrombosis. IMPRESSION: No ultrasound evidence of deep venous thrombosis . Electronically signed by: Maynor Jones MD 01/27/2017 12:22 PM HANDBAG OPERATOR
[2017-01-27] MEDS ORDERED: INSULIN DETEMIR 100 UNITS/ML PEN SUBCU ONE (13:25)
--- NOTE | 2017-01-27 17:18 | PCM.CORE ---
Physician DVT/VTE - Nurse DVT Assessment & Total Each Risk Factor Represents 3 Points: Hx of DVT/PE, Medical PT with Hx of MO, CHF, Severe infection/sepsis Each Risk Factor Represents 1 Point: Age 41-60, Medical PT at Bed Rest Each Risk Factor is 1 Point: Varicose Veins/Edema Legs, Obesity (BMI >25) DVT Assessment Score: 10 - 5 or more Very High Risk Treatments: Early Ambulation *, Sequential Compression Device Pharmacological: Enoxaparin 40mg SQ Daily
[2017-01-27] MEDS ORDERED: PRAVASTATIN SODIUM 20 MG TAB ONE (19:28)
[2017-01-27] MEDS: PRAVASTATIN SODIUM 20 MG TAB PO SCH (20:31)
[2017-01-27] MEDS ORDERED: KCL 20 MEQ/NS 1,000 ML IVS PRN (20:47)
[2017-01-27] MEDS: INSULIN DETEMIR 100 UNITS/ML PEN SUBCU SCH (21:10)
[2017-01-28] MEDS ORDERED: VANCOMYCIN HCL INJ 1,000 MG VIAL IVPB ONE (03:31)
[2017-01-28] MEDS ORDERED: SODIUM CHLORIDE 0.9% 500ML 500 ML ONE (03:31)
[2017-01-28] MEDS: VANCOMYCIN HCL INJ 1,750 MG in SODIUM CHLORIDE 0.9% 500ML 500 ML IVPB SCH (03:47)
[2017-01-28] MEDS ORDERED: PIPERACILLIN/TAZOBACTAM 3.375 GM VIAL IVPB ONE ×2 (03:54→11:30)
[2017-01-28] MEDS ORDERED: SODIUM CHLORIDE 0.9% 100ML 100 ML IVPB ONE ×2 (03:54→11:30)
[2017-01-28] MEDS ORDERED: metroNIDAZOLE IV PREMIX 500MG 100 ML IVPB ONE (03:54)
[2017-01-28] MEDS: PIPERACILLIN/TAZOBACTAM 3.375 GM in SODIUM CHLORIDE 0.9% 100ML 100 ML IVPB SCH (05:40)
[2017-01-28] MEDS: PANTOPRAZOLE SODIUM TAB 40 MG PO SCH (06:39)
[2017-01-28] MEDS: metroNIDAZOLE IV PREMIX 500MG 500 MG in PREMIX BAG 1 BAG IVPB SCH (07:03)
[2017-01-28] MEDS: INSULIN LISPRO 100 UNITS/ML PEN SUBCU SCH ×7 (07:19→21:03)
[2017-01-28] MEDS: INSULIN DETEMIR 100 UNITS/ML PEN SUBCU SCH ×2 (07:20→21:02)
[2017-01-28] MEDS: POTASSIUM CHLORIDE 10 MEQ TAB PO SCH (07:21)
[2017-01-28] MEDS: LISINOPRIL 10 MG TAB PO SCH (08:01)
[2017-01-28] MEDS: SODIUM CHLORIDE 0.9% (FLUSH) 10 ML SYG IV SCH ×2 (08:01→20:25)
[2017-01-28] MEDS: ASPIRIN TABLET 325 MG TAB PO SCH (08:01)
[2017-01-28] MEDS: CARVEDILOL 12.5 MG TAB PO SCH ×2 (08:01→20:24)
[2017-01-28] MEDS: GABAPENTIN 300 MG CAP PO SCH ×2 (08:01→20:24)
[2017-01-28] MEDS: FUROSEMIDE 40 MG TAB PO SCH (08:01)
[2017-01-28] MEDS: ENOXAPARIN SODIUM 40 MG/0.4 ML SYG SUBCU SCH (08:01)
[2017-01-28] MEDS: BIFIDOBACTERIUM INFANTIS 4 MG CAP PO SCH (09:04)
[2017-01-28] MEDS: CHLORHEXIDINE GLUC 4% 15ML 45 ML, WATER FOR IRRIGATION 1,000 ML TOP SCH ×2 (09:04)
--- NOTE | 2017-01-28 10:08 | PN ---
SUPERVISING PHYSICIAN: Todd Mancini MD DATE: 01/27/17 SUBJECTIVE: The patient continues to have elevated blood sugars. He remains afebrile. He has been showering with Hibiclens for wound management. He remains on Zosyn, Flagyl and vancomycin. He has had no nausea, vomiting, diarrhea or any chest pain. OBJECTIVE: VITAL SIGNS: Temperature 98.0. Pulse 91. Blood pressure 110/70. Respirations 18. Saturation 95% on room air. I&Os show negative balance of 1040 with 2660 in, 3700 out. Weight 132.3 kg. CHEST: Lungs clear to auscultation bilaterally. HEART: Regular rate and rhythm. ABDOMEN: Obese, but soft and nontender. Positive bowel sounds. EXTREMITIES: There is still notable erythema to the entire right foot with the toes on the left side having large blister and distal portion of toes with some drainage with areas of erythema and drainage between the toes on the left foot between the middle and third toe. Pulses are 2+ bilaterally. There still remains a large blister over the left great toe. NEUROLOGIC: Alert and oriented times three. LABORATORY: White count down to 11,000, hemoglobin 15, hematocrit 44.9, platelet count 254,000, differential does show a left shift with sedrate showing elevation at 18. Chemistries show a mild hyponatremia with potassium 132, blood sugars remain elevated between 260 and 321. Calcium 8.3, liver functions within normal limits. Magnesium normal at 1.8. C-reactive protein on admission was 2. MICROBIOLOGY: Fourth toe on the left wound culture shows heavy growth of normal skin deana and light growth of bacillus subspecies. RADIOLOGY: Bilateral ultrasound for DVT per radiologic interpretation show no evidence of DVT on the left or the right. He also had an arterial study on the bilateral lower extremities with radiology noting unremarkable arterial ultrasound evaluation of bilateral lower extremities. ASSESSMENT: 1. Cellulitis of the left and right foot, with the right foot being followed by wound care in [place]. 2. Leukocytosis with C-reactive protein showing slight elevated, secondary #1. 3. Diabetes mellitus, type 2, poorly controlled, on insulin as well as Victoza with a hemoglobin A1c of 11.8. 4. Congestive heart failure of unknown etiology. 5. Coronary artery disease with a history of myocardial infarction. 6. Mild depression. 7. Smokeless tobacco abuse. 8. Poor medical compliance. 9. Hypertension, poorly controlled with poor medical compliance. PLAN: We will continue to follow the patient closely with antibiotics to include Zosyn, vancomycin and Flagyl. Dr. Coley has seen the patient and is managing wound care. The patient is encouraged to shower and after shower, he will have Hibiclens cleansing. In regards to his poorly controlled diabetes, I will increase his Levemir to an additional 20 units today in the afternoon with additional 10 at night. I will also start him on a.c. coverage with 8 units and closely monitor. He remains on Lovenox for DVT prophylaxis as well as Protonix for ulcer prophylaxis. We will continue to monitor the patient and repeat his laboratory studies tomorrow. Until then, we will continue to monitor the patient closely and treat appropriately. #[id number] [facility]
[2017-01-28] MEDS: AMOXICILLIN & POT CLAVULANATE 875 MG TAB PO SCH (11:38)
[2017-01-28] MEDS: metroNIDAZOLE 500 MG TAB PO SCH ×2 (11:38→20:23)
[2017-01-28] MEDS ORDERED: DOXYCYCLINE HYCLATE CAP 100 MG CAP ONE (19:17)
[2017-01-28] MEDS: PRAVASTATIN SODIUM 20 MG TAB PO SCH (20:24)
[2017-01-28] MEDS: DOXYCYCLINE HYCLATE CAP 100 MG CAP PO SCH (20:24)
[2017-01-29] MEDS: AMOXICILLIN & POT CLAVULANATE 875 MG TAB PO SCH (00:04)
[2017-01-29] MEDS: metroNIDAZOLE 500 MG TAB PO SCH (04:01)
[2017-01-29] MEDS: IV SET AND CAP CHANGE INJ INJ SCH (04:03)
[2017-01-29] MEDS: PANTOPRAZOLE SODIUM TAB 40 MG PO SCH (06:19)
[2017-01-29 06:30] VITALS: BP 135/86; TEMP 98.2; O2SAT 95
[2017-01-29] MEDS: INSULIN LISPRO 100 UNITS/ML PEN SUBCU SCH ×2 (08:00→08:01)
[2017-01-29] MEDS: INSULIN DETEMIR 100 UNITS/ML PEN SUBCU SCH (08:02)
[2017-01-29] MEDS: POTASSIUM CHLORIDE 10 MEQ TAB PO SCH (08:18)
[2017-01-29] MEDS: CARVEDILOL 12.5 MG TAB PO SCH (08:42)
[2017-01-29] MEDS: BIFIDOBACTERIUM INFANTIS 4 MG CAP PO SCH (08:43)
[2017-01-29] MEDS: LISINOPRIL 10 MG TAB PO SCH (08:43)
[2017-01-29] MEDS: ASPIRIN TABLET 325 MG TAB PO SCH (08:43)
[2017-01-29] MEDS: FUROSEMIDE 40 MG TAB PO SCH (08:43)
[2017-01-29] MEDS: GABAPENTIN 300 MG CAP PO SCH (08:43)
[2017-01-29] MEDS: DOXYCYCLINE HYCLATE CAP 100 MG CAP PO SCH (08:43)
[2017-01-29] MEDS: SODIUM CHLORIDE 0.9% (FLUSH) 10 ML SYG IV SCH (08:44)
[2017-01-29] MEDS: ENOXAPARIN SODIUM 40 MG/0.4 ML SYG SUBCU SCH (08:44)
[2017-01-29] MEDS: CHLORHEXIDINE GLUC 4% 15ML 45 ML, WATER FOR IRRIGATION 1,000 ML TOP SCH ×2 (08:47)
--- NOTE | 2017-01-29 09:08 | PN ---
SUPERVISING PHYSICIAN: Todd Mancini MD DATE: 01/28/17 SUBJECTIVE: The patient is resting in bed. His blood sugar has been better controlled. He remains afebrile. He continues with wound management, . OBJECTIVE: VITAL SIGNS: Temperature 97.4. Pulse 82. Blood pressure 125/87. Respirations 12. Saturation 96%.. CHEST: Lungs clear to auscultation bilaterally. HEART: Regular rate and rhythm. ABDOMEN: Soft and nontender. Positive bowel sounds. Obese. EXTREMITIES: No cyanosis, clubbing, or edema. Dressing remains in place on the left foot. Pulses are 2+ bilaterally. NEUROLOGIC: Alert and oriented times three. LABORATORY: White count is 2,300 with differential showing a slight left shift. Chemistries show cholesterol to be within normal limits, potassium 3.6, BUN 9, creatinine 0.79. Blood sugars between 96 and 186 and 260. MICROBIOLOGY: Final culture on the 4th toe on the left foot showed he had a growth of normal skin deana. RADIOLOGY: No additional radiographic studies were completed. ASSESSMENT: 1. Cellulitis of the left and right foot, with the right foot being followed by wound care in [place]. 2. Leukocytosis with C-reactive protein showing slight elevation secondary #1 along with an elevated sed rate. 3. Diabetes mellitus, type 2, poorly controlled, on insulin as well as oral medications with hemoglobin A1c at11.8. 4. Congestive heart failure of unknown etiology. 5. Coronary artery disease with a history of myocardial infarction. 6. Mild depression. 7. Smokeless tobacco abuse. 8. Poor medical compliance. 9. Hypertension, poorly controlled with poor medical compliance. PLAN: Will continue to follow the patient along with Dr. Coley and management of wound care. Will transition the patient's p.o. medication today and include Augmentin, Flagyl and Doxycycline. If he shows good response and tolerating oral medication, anticipate discharge tomorrow. Will encourage wound management with showers and Hibiclens cleansing and keeping the leg elevated as much as possible. He will be continued on Levemir and additional insulin coverage for sliding scale. Will repeat laboratory studies in the morning to include a CBC. Until discharge, we will continue to monitor closely and treat appropriately with discharge anticipated for tomorrow. [facility][id number] [facility]
--- NOTE | 2017-02-01 14:40 | DS ---
SUPERVISING PHYSICIAN: Todd Mancini MD DISCHARGE DIAGNOSIS: 1. Cellulitis of the left and right foot, with the right foot being followed by wound care in [place]. 2. Leukocytosis with C-reactive protein showing slight elevation on admission, but improved prior to discharge as well as normalization of sedrate after initiation of parenteral antibiotics. 3. Diabetes mellitus, type 2, poorly controlled, on insulin as well as oral medications with hemoglobin A1c on admission of 11.8. 4. Congestive heart failure of unknown etiology. 5. Coronary artery disease with a history of myocardial infarction. 6. Mild depression. 7. Smokeless tobacco abuse. 8. Poor medical compliance. 9. Hypertension, poorly controlled with poor medical compliance. REASON FOR HOSPITALIZATION: Mr. Victor is a 41-year-old male patient who has an extensive history of cellulitis of the lower legs as well as poorly controlled diabetes mellitus. He presented to the Emergency Room on date of admission with fever and chills and redness and ulceration to all the toes on his left foot. He has had a similar problem with his right foot and he is presently being treated by the wound care clinic in [place] and Dr. Troy. His blood sugars had also been running very high due to the medication and his infection as well as he has not taken his regular medications because he has "had to move." In the Emergency Room, he was found to have an elevated white count of 13.2. His sodium was slightly low at 129. A wound culture was obtained of the left foot. His left foot on exam showed erythema to the midfoot with ulceration and blistering of all toes with some discharge. He was admitted to the hospital for ongoing parenterally and reevaluation of the wound. He was given Zosyn initially in the Emergency Department. His hemoglobin A1c was noted to be 11.8. He was admitted in stable condition. LABORATORY: White count initially as 13,200. Prior to discharge, it improved somewhat and was down to 12,200. Hemoglobin and hematocrit were stable and on discharge were 16.4 and 48.5. Platelet count 260,000. Differential was without a left shift. Chemistries on admission showed a mild hyponatremia with sodium 129, potassium 4.0, BUN 10, creatinine 0.96. Random glucose initially 480 on admission. Hemoglobin A1c was 11.8. Liver functions showed elevated alkaline phosphatase of 134. Initial C-reactive protein was 2.0. Prior to discharge, his electrolytes had normalized. Sodium 136, BUN 9, creatinine 0.79. Glucoses were still elevated, but between 186 and 272. C-reactive protein prior to discharge was down to 1.1. Sedrate initially on admission was 18, prior to discharge was down to 12. Urinalysis on admission showed greater than 300 protein, 500 glucose, trace blood. All other indices were within normal limits as well as microscopic. MICROBIOLOGY: Left foot, fourth toe final culture results showed heavy growth of normal skin deana with light growth of bacillus subspecies. RADIOLOGY: Lower extremity ultrasound showed unremarkable arterial ultrasound evaluation of the bilateral lower extremities. He also had bilateral DVT studies and per radiologic interpretation, there was no ultrasound evidence of deep venous thrombosis. HOSPITAL COURSE: Mr. Victor was noted as in history of present illness. He was initiated on antibiotics to include Zosyn, Flagyl, and vancomycin per pharmacy protocol. He showed good response to treatment and was felt on the day of discharge stable enough to be followed up in the outpatient setting. He also wound management consultation with Dr. Coley, at which point he was showering and utilizing Hibiclens for wound management. No procedures were performed during admission. The patient remained afebrile through admission and was hemodynamically stable with vital signs on discharge showing blood pressure 135/ 86, pulse 88, temperature 98.2, saturation 95% on room air. PLAN: Mr. Victor was discharged on 01/29/17 with instructions to followup with wound care clinic in [place] to further address both feet and to followup with Dr. Gaviria in the next week. He was to return to the hospital should he have any worsening or change in his condition. Wound care was instructed to use Hibiclens twice daily and to keep dressings in place, especially between the toes and to shower only, no tub bath, and to utilize the Hibiclens after he took a shower. He is to call the wound care clinic on Wednesday where he is currently going for his right foot. He was to take new medications as instructed and to keep his foot elevated as much as possible and to keep of it as much as possible. DISCHARGE PRESCRIPTIONS: 1. Augmentin 875 mg q.12h., #28. 2. Align 4 mg daily. 3. Chlorhexidine diluted Hibiclens washes daily as instructed. 4. Doxycycline 100 mg twice daily, #28. 5. Flagyl 500 mg 3 times a day, #30. DIET AT DISCHARGE: Diabetic diet as tolerated. ACTIVITY: As instructed, to keep leg elevated as much as possible. No tub baths. CONDITION AT DISCHARGE: Stable and improved. #[id number] [facility]
== END 2017-01-29 10:15 | disposition home or self-care (01) | DRG 603 ==
LOC: ER 23:04 → MS 01-26 01:54 → OBSVTOIN 01-26 01:54
PROVIDERS: ADMIT Emergency Medicine; ATTEND Emergency Medicine
DX: L03.116 Cellulitis of left lower limb (principal); E87.1 Hypo-osmolality and hyponatremia; L03.115 Cellulitis of right lower limb; E11.65 Type 2 diabetes mellitus with hyperglycemia; I11.0 Hypertensive heart disease with heart failure; I50.9 Heart failure, unspecified; I25.10 Atherosclerotic heart disease of native coronary artery without angina pectoris; R70.0 Elevated erythrocyte sedimentation rate; F32.9 Major depressive disorder, single episode, unspecified; F17.220 Nicotine dependence, chewing tobacco, uncomplicated; I25.2 Old myocardial infarction; Z91.19 Patient's noncompliance with other medical treatment and regimen; Z95.5 Presence of coronary angioplasty implant and graft; Z88.8 Allergy status to other drugs, medicaments and biological substances; Z79.4 Long term (current) use of insulin; Z79.82 Long term (current) use of aspirin; Z79.899 Other long term (current) drug therapy

== ENCOUNTER 2019-12-23 10:27 | Emergency (ER) | payer MEDICARE ==
[2019-12-23] MEDS ORDERED: SODIUM CHLORIDE 0.9% (FLUSH) 10 ML SYG IV PRN (10:39)
[2019-12-23] MEDS ORDERED: cefTRIAXone SODIUM 2 GM in SODIUM CHL 0.9% 100ML MINI-BAG 100 ML IVPB ONE (10:39)
[2019-12-23] MEDS ORDERED: SODIUM CHLORIDE 0.9% 1000ML 2,000 ML IVS ONE (10:39)
--- NOTE | 2019-12-23 10:53 | ED.PDOC ---
History of Present Illness - General Chief Complaint: Respiratory Problem Stated Complaint: cough,shortness of breath,diabetic foot wound Time Seen by Provider: 12/23/19 10:39 Source: patient, RN notes reviewed, Vital Signs reviewed, EMS notes reviewed, family Exam Limitations: no limitations - History of Present Illness Initial Comments: This is a 44-year-old male with history of poorly controlled diabetes, CVA, congestive heart failure, presenting to the emergency department today for cough, shortness of breath that began 4 days ago. He also has a new wound to the plantar surface of his foot this been present for the past week. He denies any known Covid contacts. He does report loss of taste, no changes in smell. He denies any recent hospitalizations. Allergies/Adverse Reactions: Allergies Metformin Adverse Reaction (Intermediate, Verified 02/22/15 10:17) Diarrhea Home Medications: Ambulatory Orders Carvedilol [Coreg] 25 mg PO BID 11/27/14 Furosemide [Lasix] 40 mg PO DAILY 11/27/14 Gabapentin [Neurontin] 900 mg PO BEDTIME 11/27/14 Liraglutide [Victoza] 1.8 mg SC DAILY 11/27/14 Lisinopril 20 mg PO DAILY 11/27/14 Potassium Chloride [Potassium Chloride ER] 10 meq PO DAILYBK 11/27/14 Pravastatin Sodium [Pravachol] 40 mg PO BEDTIME 11/27/14 Insulin Detemir [Levemir] 40 unit SUBCU BID 02/22/15 Aspirin 325 mg PO QD 08/05/16 Gabapentin 300 mg PO DAILY 08/05/16 Insulin Lispro [Humalog] 15 units SC AC 08/05/16 Amoxicillin & Pot Clavulanate [Augmentin Tab] 875 mg PO Q12H #28 tab 01/29/17 Bifidobacterium Infantis [Align] 4 mg PO DAILY cap 01/29/17 Chlorhexidine Gluc 4% 15Ml [Hibiclens 15ml Unit Dose] 45 ml TOP DAILY ud 01/29/17 Doxycycline Hyclate [Vibramycin] 100 mg PO BID #28 cap 01/29/17 metroNIDAZOLE [Flagyl] 500 mg PO TID #30 tab 01/29/17 Review of Systems - Review of Systems Constitutional: Denies: chills, fever EENTM: States: nose congestion. Denies: blurred vision, double vision, ear discharge, throat pain, mouth swelling Respiratory: States: cough, short of breath. Denies: wheezing Cardiology: Denies: chest pain, edema Gastrointestinal/Abdominal: Denies: constipation, diarrhea, nausea, vomiting Genitourinary: Denies: dysuria, hematuria Musculoskeletal: Denies: back pain, muscle pain, neck pain Skin: States: change in color, lesions. Denies: rash Neurological: Denies: numbness, paresthesia, tingling, weakness Endocrine: States: no symptoms reported. Denies: increased hunger, increased thirst, increased urine Hematologic/Lymphatic: Denies: blood clots, swollen glands Past Medical History (General) - Patient Medical History Hx Seizures: No Hx Stroke: No Hx Dementia: No Hx Asthma: No Hx of COPD: No Hx Cardiac Disorders: Yes - CT Hx Congestive Heart Failure: Yes Hx Pacemaker: No Hx Hypertension: Yes Hx Thyroid Disease: No Hx Diabetes: Yes Hx Gastroesophageal Reflux: No Hx Renal Disease: No Hx Cancer: No Hx of HIV: No Hx Hepatitis C: No Hx MRSA: No - Vaccination History Hx Tetanus, Diphtheria Vaccination: No Hx Influenza Vaccination: - unknown Hx Pneumococcal Vaccination: No - Social History Hx Tobacco Use: No Hx Chewing Tobacco Use: Yes Hx Alcohol Use: No Hx Substance Use: Yes Hx Substance Use Treatment: No Hx Depression: No Hx Physical Abuse: No Hx Emotional Abuse: No Family Medical History - Family History Grandparents Family History: No Known Living Status: Hx Family Cancer: Yes - cancer Physical Exam - Physical Exam General Appearance: Alert, Ill Appearing Ears, Nose, Throat: hearing grossly normal, normal ENT inspection, normal pharynx Neck: full range of motion, supple, normal inspection Respiratory: lungs clear, normal breath sounds, no respiratory distress, no accessory muscle use Cardiovascular/Chest: normal peripheral pulses, regular rate, rhythm, tachycardia Gastrointestinal/Abdominal: non tender, soft, no organomegaly Extremity: normal range of motion, non-tender, other - 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 There is a chronic appearing ulceration to the ball of the foot. He also has cellulitis overlying the plantar surface of the calcaneus Neurologic: alert, oriented x 3, other - Chronic right hemiparesis from prior stroke, unchanged Skin Exam: warm/dry, other - See musculoskeletal exam Progress - Progress Progress: 12/23/19 10:54 I suspect severe sepsis at this time 12/23/19 12:38 Patient rechecked. Sepsis recheck completed. BP improved. Heart rate down to 100. No respiratory distress. 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 Patient has seen Dr. James Anderson DPM in the past, he performed his toe amputations approximately 6 months ago. 12/23/19 12:[address] James Anderson, [place].P.M, pt's chef assistant. Dr. Mcclure is machine precision etcher and is currently in the operating room at this time. Will call back when available. 12/23/19 13:[address] Mcclure, Ortho hand surgeon at [facility]. He recommended transfer for podiatric evaluation. Podiatry would not be available at [facility] for several days, feels he will likely need more urgent surgical intervention. DDx: Sepsis, diabetic foot infection, osteomyelitis, COVID-19, pneumonia, other viral bronchitis, DKA MDM: Patient presenting with borderline blood pressures, tachycardia, with leukocytosis at 23K and 16% bandemia. He has history of diabetic foot infections with previous amputations of the right great toe and second toe. He has a new wound to the right heel that is suspicious for anaerobic infection with gas in the soft tissue. No evidence of DKA. There are no bony erosions suggestive of osteomyelitis. He also reported cough, shortness of breath is been ongoing for several days. Covid and flu swabs are negative, chest x-ray is negative, his D-dimer was slightly elevated but CTA chest shows no evidence of PE, no infiltrates, no groundglass several traits suggestive of COVID-19. I suspect viral bronchitis based on his symptoms. O2 sats have been acceptable in the emergency department. His chef assistant is in [place], but there is no podiatry coverage at [facility] for the next several days. I discussed the case with Ortho there who recommended transfer for dedicated podiatry evaluation. DO Osiel Johnson #[id number] 12/23/19 14:09 - Results/Orders Results/Orders: EKG reviewed personally by me at 10:57 AM. Sinus tachycardia, rate of 101, normal axis, normal intervals, no ST segment elevations or depressions. EXAM: XR Right Foot, 2 Views CLINICAL HISTORY: diabetic wounds to ball of foot and calcaneus TECHNIQUE: Frontal and lateral views of the right foot. COMPARISON: No relevant prior studies available. FINDINGS: Bones/joints: There is a small plantar calcaneal spur. There are expected postoperative changes post 1st transmetatarsal amputation. The phalanges of the 2nd toe have been removed. There is no osseous destruction are evident fracture. No dislocation. Soft tissues: There is swelling and soft tissue gas plantar to the calcaneus. There is a probable superficial cutaneous ulceration plantar surface of the foot at the level of the distal metatarsals. Diffuse soft tissue swelling present. There is mild atherosclerotic calcification noted. Minimal plantar cutaneous calcification noted. IMPRESSION: 1. Abnormality consistent with anaerobic infection of the soft tissues plantar to the calcaneus. 2. No plain radiographic evidence of osteomyelitis. Electronically signed by: Elva Cisneros MD 12/23/2019 11:32 AM EXAM: XR Chest, 1 View CLINICAL HISTORY: Cough, SOB, sepsis TECHNIQUE: Frontal view of the chest. COMPARISON: 02/08/2016 FINDINGS: Lungs: No consolidation. Symmetrical vascular pattern. Pleural space: No pneumothorax or pleural effusion. Heart: Normal cardiac size and configuration. Mediastinum: No abnormality noted. Bones/joints: No osseous destruction or sclerosis noted. IMPRESSION: No abnormality noted. Electronically signed by: Elva Cisneros MD 12/23/2019 11:34 AM TECHNIQUE: CT angiography of the chest was performed with axial dataset after bolus intravenous injection of intravenous contrast including computer-generated multiplanar MIP reformations. Total Dose Length Product: 793. This exam was performed according to our departmental dose-optimization program, which includes automated exposure control, adjustment of the mA and/or kV according to patient size and/or use of iterative reconstruction technique. Comparison studies: Chest x-ray December 23, 2019 at 11:12 AM. Clinical history: SOB, elevated D-dimer. CT Chest: Findings: Pulmonary arteries: There is reduced arterial bolus timing in the pulmonary artery. The density is 181 HU. This is below the diagnostic threshold of 210 HU. The diagnostic sensitivity therefore reduced. Main, right, left pulmonary arteries appear generally opacified without evidence for large, central or saddle embolus. No abnormalities detected in the branching segmental arteries. No evidence for acute pulmonary embolism. Cardiac: Heart size: Heart size is enlarged mildly. There is dense coronary artery calcification. Pericardial effusion: None. Right ventricular strain: None. Left atrial clot: None. Aorta: No aneurysm or evidence for dissection. Lungs: There is no acute consolidation, mass or infiltrate. There is minimal basilar bronchovascular crowding. Pleura: Trace bilateral pleural fluid. Mediastinum: Multiple subcentimeter nonspecific mediastinal lymph nodes. Nhi: No mass. Musculoskeletal: Unremarkable. Upper abdomen: Enlarged liver with low density from steatosis. Enlarged 13.5 cm spleen. IMPRESSION: 1. There is no evidence for acute pulmonary embolism. See comments. 2. Small pleural fluid. 3. Hepatosplenomegaly and hepatic steatosis Electronically signed by: Markos Boykin MD 12/23/2019 1:49 PM CDT Laboratory Tests 12/23/19 12/23/19 12/23/19 11:06 11:06 11:06 WBC 23.2 H* RBC 4.32 L Hgb 13.2 L Hct 38.0 L MCV 88.1 MCH 30.6 MCHC 34.7 RDW 12.8 Plt Count 395 MPV 9.8 Absolute Neuts (auto) Not Reportable Absolute Lymphs (auto) Not Reportable Absolute Monos (auto) Not Reportable Absolute Eos (auto) Not Reportable Neutrophils % Not Reportable Neutrophils % (Manual) 65.0 Lymphocytes % Not Reportable Lymphocytes % (Manual) 12.0 Monocytes % Not Reportable Monocytes % (Manual) 6.0 Eosinophils % Not Reportable Basophils % Not Reportable Band Neutrophils 16.0 H* Eosinophils 0.0 Basophils 1.0 Platelet Estimate Normal Normal RBC Morphology 1+aniso D-Dimer, Quantitative Cancelled Sodium 127 L Potassium 4.7 Chloride 90 L Carbon Dioxide 21 Anion Gap 20.7 H BUN 30 H Creatinine 1.74 H BUN/Creatinine Ratio 17.2 Random Glucose 247 H Serum Osmolality 269.7 L Lactic Acid Calcium 8.8 Total Bilirubin 1.4 H AST 31 ALT 30 Alkaline Phosphatase 188 H Troponin I B-Natriuretic Peptide Serum Total Protein 8.3 H Albumin 2.9 L Globulin 5.4 H Albumin/Globulin Ratio 0.5 L Serum Ketones SARS Serology 12/23/19 12/23/19 12/23/19 11:06 11:06 11:06 WBC RBC Hgb Hct MCV MCH MCHC RDW Plt Count MPV Absolute Neuts (auto) Absolute Lymphs (auto) Absolute Monos (auto) Absolute Eos (auto) Neutrophils % Neutrophils % (Manual) Lymphocytes % Lymphocytes % (Manual) Monocytes % Monocytes % (Manual) Eosinophils % Basophils % Band Neutrophils Eosinophils Basophils Platelet Estimate Normal RBC Morphology D-Dimer, Quantitative 1820.0 H* Sodium Potassium Chloride Carbon Dioxide Anion Gap BUN Creatinine BUN/Creatinine Ratio Random Glucose Serum Osmolality Lactic Acid 1.4 Calcium Total Bilirubin AST ALT Alkaline Phosphatase Troponin I 0.03 B-Natriuretic Peptide Serum Total Protein Albumin Globulin Albumin/Globulin Ratio Serum Ketones SARS Serology 0.300 L 12/23/19 12/23/19 11:06 12:31 WBC RBC Hgb Hct MCV MCH MCHC RDW Plt Count MPV Absolute Neuts (auto) Absolute Lymphs (auto) Absolute Monos (auto) Absolute Eos (auto) Neutrophils % Neutrophils % (Manual) Lymphocytes % Lymphocytes % (Manual) Monocytes % Monocytes % (Manual) Eosinophils % Basophils % Band Neutrophils Eosinophils Basophils Platelet Estimate Normal RBC Morphology D-Dimer, Quantitative Sodium Potassium Chloride Carbon Dioxide Anion Gap BUN Creatinine BUN/Creatinine Ratio Random Glucose Serum Osmolality Lactic Acid Calcium Total Bilirubin AST ALT Alkaline Phosphatase Troponin I B-Natriuretic Peptide 43.6 Serum Total Protein Albumin Globulin Albumin/Globulin Ratio Serum Ketones Negative SARS Serology Departure - Departure Clinical Impression: Cellulitis of right foot Sepsis Qualifiers: Sepsis type: sepsis due to unspecified organism Sepsis acute organ dysfunction status: without acute organ dysfunction Qualified Code(s): A41.9 - Sepsis, unspecified organism Diabetic ulcer of right foot associated with diabetes mellitus due to underlying condition Qualifiers: Diabetic foot ulcer location: heel Non-pressure ulcer stage: unspecified non-pressure ulcer stage Qualified Code(s): E08.621 - Diabetes mellitus due to underlying condition with foot ulcer Type II diabetes mellitus 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 Copy, Patient Portal Self Enrollment Referrals: James Gaviria MD [Primary Care Provider] - 1-2 Weeks Home Medications: Ambulatory Orders Carvedilol [Coreg] 25 mg PO BID 11/27/14 Furosemide [Lasix] 40 mg PO DAILY 11/27/14 Gabapentin [Neurontin] 900 mg PO BEDTIME 11/27/14 Liraglutide [Victoza] 1.8 mg SC DAILY 11/27/14 Lisinopril 20 mg PO DAILY 11/27/14 Potassium Chloride [Potassium Chloride ER] 10 meq PO DAILYBK 11/27/14 Pravastatin Sodium [Pravachol] 40 mg PO BEDTIME 11/27/14 Insulin Detemir [Levemir] 40 unit SUBCU BID 02/22/15 Aspirin 325 mg PO QD 08/05/16 Gabapentin 300 mg PO DAILY 08/05/16 Insulin Lispro [Humalog] 15 units SC AC 08/05/16 Amoxicillin & Pot Clavulanate [Augmentin Tab] 875 mg PO Q12H #28 tab 01/29/17 Bifidobacterium Infantis [Align] 4 mg PO DAILY cap 01/29/17 Chlorhexidine Gluc 4% 15Ml [Hibiclens 15ml Unit Dose] 45 ml TOP DAILY ud 01/29/17 Doxycycline Hyclate [Vibramycin] 100 mg PO BID #28 cap 01/29/17 metroNIDAZOLE [Flagyl] 500 mg PO TID #30 tab 01/29/17 Critical Care Note - Critical Care Note Total Time (mins): 32 Comments: Patient with evidence of sepsis, suspected source is diabetic foot infection of the right heel. There is gas in the soft tissue. He was initially hypotensive requiring aggressive fluid resuscitation. Time was spent in initial evaluation, multiple discussions with the patient, family, consultants, evaluating labs and imaging, ordering tests, reviewing old records, reviewing cardiac output measurements.
[2019-12-23] MEDS ORDERED: VANCOMYCIN HCL INJ 2,000 MG in SODIUM CHLORIDE 0.9% 500ML 500 ML IVPB SCH (11:00)
--- NOTE | 2019-12-23 11:33 | RAD ---
EXAM: XR Right Foot, 2 Views CLINICAL HISTORY: diabetic wounds to ball of foot and calcaneus TECHNIQUE: Frontal and lateral views of the right foot. COMPARISON: No relevant prior studies available. FINDINGS: Bones/joints: There is a small plantar calcaneal spur. There are expected postoperative changes post 1st transmetatarsal amputation. The phalanges of the 2nd toe have been removed. There is no osseous destruction are evident fracture. No dislocation. Soft tissues: There is swelling and soft tissue gas plantar to the calcaneus. There is a probable superficial cutaneous ulceration plantar surface of the foot at the level of the distal metatarsals. Diffuse soft tissue swelling present. There is mild atherosclerotic calcification noted. Minimal plantar cutaneous calcification noted. IMPRESSION: 1. Abnormality consistent with anaerobic infection of the soft tissues plantar to the calcaneus. 2. No plain radiographic evidence of osteomyelitis. Electronically signed by: Elva Cisneros MD 12/23/2019 11:32 AM CDT
--- NOTE | 2019-12-23 11:35 | RAD ---
EXAM: XR Chest, 1 View CLINICAL HISTORY: Cough, SOB, sepsis TECHNIQUE: Frontal view of the chest. COMPARISON: 02/08/2016 FINDINGS: Lungs: No consolidation. Symmetrical vascular pattern. Pleural space: No pneumothorax or pleural effusion. Heart: Normal cardiac size and configuration. Mediastinum: No abnormality noted. Bones/joints: No osseous destruction or sclerosis noted. IMPRESSION: No abnormality noted. Electronically signed by: Elva Cisneros MD 12/23/2019 11:34 AM CDT
--- NOTE | 2019-12-23 13:50 | CT ---
Sex: Male. : 1975. TECHNIQUE: CT angiography of the chest was performed with axial dataset after bolus intravenous injection of intravenous contrast including computer-generated multiplanar MIP reformations. Total Dose Length Product: 793. This exam was performed according to our departmental dose-optimization program, which includes automated exposure control, adjustment of the mA and/or kV according to patient size and/or use of iterative reconstruction technique. Comparison studies: Chest x-ray December 23, 2019 at 11:12 AM. Clinical history: SOB, elevated D-dimer. CT Chest: Findings: Pulmonary arteries: There is reduced arterial bolus timing in the pulmonary artery. The density is 181 HU. This is below the diagnostic threshold of 210 HU. The diagnostic sensitivity therefore reduced. Main, right, left pulmonary arteries appear generally opacified without evidence for large, central or saddle embolus. No abnormalities detected in the branching segmental arteries. No evidence for acute pulmonary embolism. Cardiac: Heart size: Heart size is enlarged mildly. There is dense coronary artery calcification. Pericardial effusion: None. Right ventricular strain: None. Left atrial clot: None. Aorta: No aneurysm or evidence for dissection. Lungs: There is no acute consolidation, mass or infiltrate. There is minimal basilar bronchovascular crowding. Pleura: Trace bilateral pleural fluid. Mediastinum: Multiple subcentimeter nonspecific mediastinal lymph nodes. Nhi: No mass. Musculoskeletal: Unremarkable. Upper abdomen: Enlarged liver with low density from steatosis. Enlarged 13.5 cm spleen. IMPRESSION: 1. There is no evidence for acute pulmonary embolism. See comments. 2. Small pleural fluid. 3. Hepatosplenomegaly and hepatic steatosis Electronically signed by: Markos Boykin MD 12/23/2019 1:49 PM CDT
[2019-12-23 16:24] VITALS: BP 115/78; TEMP 97.5; O2SAT 94
== END 2019-12-23 16:15 | disposition short-term general hospital (02) ==
LOC: ER 10:27
DX: A41.9 Sepsis, unspecified organism (principal); E08.621 Diabetes mellitus due to underlying condition with foot ulcer; E11.65 Type 2 diabetes mellitus with hyperglycemia; L03.115 Cellulitis of right lower limb; R06.02 Shortness of breath; Z20.828 Contact with and (suspected) exposure to other viral communicable diseases; I11.0 Hypertensive heart disease with heart failure; I50.9 Heart failure, unspecified; I25.2 Old myocardial infarction; I95.9 Hypotension, unspecified; Z79.4 Long term (current) use of insulin; Z79.82 Long term (current) use of aspirin; Z79.899 Other long term (current) drug therapy; Z86.73 Personal history of transient ischemic attack (TIA), and cerebral infarction without residual deficits
CPT/HCPCS: 36415; 71045; 71275; 73620; 80053; 81001; 82009; 83605; 83880; 84484; 85025; 85379; 85610; 85730; 86140; 86328; 87040; 87070; 87077; 87186; 87205; 87502; 87635; 93005; 94760; J0696; J3370; J7030; J7040; J7050

== ENCOUNTER 2020-02-01 05:46 | Emergency (ER) | payer MEDICARE ==
[2020-02-01] MEDS ORDERED: ACETAMINOPHEN 500 MG TAB PO ONE (06:01)
[2020-02-01] MEDS ORDERED: PIPERACILLIN/TAZOBACTAM 4.5 GM in SODIUM CHLORIDE 0.9% 100ML 100 ML IVPB ONE (06:02)
[2020-02-01] MEDS ORDERED: VANCOMYCIN HCL INJ 1,000 MG in SODIUM CHLORIDE 0.9% 250ML 250 ML IVPB ONE (06:02)
[2020-02-01] MEDS ORDERED: SODIUM CHLORIDE 0.9% 1000ML 1,000 ML IVS ONE (06:02)
[2020-02-01] MEDS ORDERED: FUROSEMIDE INJ 40 MG/4 ML VIAL IV ONE (06:02)
--- NOTE | 2020-02-01 06:09 | ED.PDOC ---
History of Present Illness - History of Present Illness Initial Comments: 44 yo M PMH HTN DM CHF Right Toes Amputation and wound infection presents to ED c/o right foot pain x 3 weeks. Pt. is febrile in the ED also c/o cough denies recent travel or contact with covid19 admits fever chills denies nausea vomiting diarrhea chest pain sob diaphoresis admits decreased appetite no change in rest bowel or bladder denies drinking or smoking has PMD Dr. Gaviria for follow up no other c/o today. at bedside. PPE worn-N95 surgical mask with attached face shield over N95 gloves and face shield over that <Jaquan Morley - Last Filed: 02/01/20 06:19> <Navin Kwong - Last Filed: 02/01/20 07:07> - General Chief Complaint: Diabetic Complaint Time Seen by Provider: 02/01/20 06:00 - History of Present Illness Allergies/Adverse Reactions: Allergies Metformin Adverse Reaction (Intermediate, Verified 02/22/15 10:17) Diarrhea Home Medications: Ambulatory Orders Carvedilol [Coreg] 25 mg PO BID 11/27/14 Furosemide [Lasix] 40 mg PO DAILY 11/27/14 Gabapentin [Neurontin] 900 mg PO BEDTIME 11/27/14 Liraglutide [Victoza] 1.8 mg SC DAILY 11/27/14 Lisinopril 20 mg PO DAILY 11/27/14 Potassium Chloride [Potassium Chloride ER] 10 meq PO DAILYBK 11/27/14 Pravastatin Sodium [Pravachol] 40 mg PO BEDTIME 11/27/14 Insulin Detemir [Levemir] 40 unit SUBCU BID 02/22/15 Aspirin 325 mg PO QD 08/05/16 Gabapentin 300 mg PO DAILY 08/05/16 Insulin Lispro [Humalog] 15 units SC AC 08/05/16 Amoxicillin & Pot Clavulanate [Augmentin Tab] 875 mg PO Q12H #28 tab 01/29/17 Bifidobacterium Infantis [Align] 4 mg PO DAILY cap 01/29/17 Chlorhexidine Gluc 4% 15Ml [Hibiclens 15ml Unit Dose] 45 ml TOP DAILY ud 01/29/17 Doxycycline Hyclate [Vibramycin] 100 mg PO BID #28 cap 01/29/17 metroNIDAZOLE [Flagyl] 500 mg PO TID #30 tab 01/29/17 Review of Systems - Review of Systems Constitutional: States: see HPI EENTM: States: see HPI Respiratory: States: see HPI Cardiology: States: see HPI Gastrointestinal/Abdominal: States: see HPI Genitourinary: States: see HPI Musculoskeletal: States: see HPI Skin: States: see HPI Neurological: States: see HPI Endocrine: States: see HPI All other Systems: Reviewed and Negative <Jaquan Morley - Last Filed: 02/01/20 06:19> Past Medical History (General) - Patient Medical History Hx Seizures: No Hx Stroke: Yes Hx Dementia: No Hx Asthma: No Hx of COPD: No Hx Cardiac Disorders: Yes - CHF, VT, Stints Hx Congestive Heart Failure: Yes Hx Pacemaker: No Hx Hypertension: Yes Hx Thyroid Disease: No Hx Diabetes: Yes Hx Gastroesophageal Reflux: Yes Hx Renal Disease: No Hx Cancer: No Hx of HIV: No Hx Hepatitis C: No Hx MRSA: No Surgical History: other - Vaccination History Hx Tetanus, Diphtheria Vaccination: No Hx Influenza Vaccination: No Hx Pneumococcal Vaccination: No - Social History Hx Tobacco Use: No Hx Chewing Tobacco Use: No Hx Alcohol Use: No Hx Substance Use: No Hx Substance Use Treatment: No Hx Depression: No Feels Threatened In Home Enviroment: No Feels Threatened In a Relationship: No Hx Physical Abuse: No Hx Emotional Abuse: No Hx Suspected Abuse: No <Jaquan Morley - Last Filed: 02/01/20 06:19> Family Medical History - Family History Grandparents Family History: No Known Living Status: Hx Family Cancer: Yes - cancer <Jaquan Morley - Last Filed: 02/01/20 06:19> Physical Exam - Physical Exam General Appearance: No apparent distress, Ill Appearing Eye Exam: bilateral normal Ears, Nose, Throat: normal ENT inspection Neck: full range of motion Respiratory: no respiratory distress, crackles Cardiovascular/Chest: regular rate, rhythm, tachycardia Gastrointestinal/Abdominal: non tender, soft Rectal Exam: deferred Back Exam: normal inspection Extremity: deformity, other - right foot with erythema tenderness surgically absent toes but great toe present Neurologic: no motor/sensory deficits Skin Exam: normal color, other - erythema right foot <Jaquan Morley - Last Filed: 02/01/20 06:19> Progress - Progress Progress: 11/26/20 06:14 A/P-Fever Tachycardia Cellulitis-iv bolus hospital monitor pulse ox lasix blood cultures zosyn vancomycin esr crp cbc cmp lactate trop bnp ekg cxr xr right foot cta chest us RLE reassess Signed out to oncoming physician Dr. Andrews <Jaquan Morley - Last Filed: 02/01/20 06:19> Departure <Jaquan Morley - Last Filed: 02/01/20 06:19> <Navin Kwong - Last Filed: 02/01/20 07:07> - Departure Clinical Impression: Tachycardia, Foot pain, right Fever Qualifiers: Fever type: unspecified Qualified Code(s): R50.9 - Fever, unspecified Cellulitis Qualifiers: Site of cellulitis: extremity Site of cellulitis of extremity: lower extremity Laterality: right Qualified Code(s): L03.115 - Cellulitis of right lower limb Disposition: Admit Patient Condition: Poor Departure Forms: ED Discharge - Pt. Copy, Patient Portal Self Enrollment Instructions: DI for Diabetes Type 2 Referrals: James Gaviria MD [Primary Care Provider] - 1-2 Days Home Medications: Ambulatory Orders Carvedilol [Coreg] 25 mg PO BID 11/27/14 Furosemide [Lasix] 40 mg PO DAILY 11/27/14 Gabapentin [Neurontin] 900 mg PO BEDTIME 11/27/14 Liraglutide [Victoza] 1.8 mg SC DAILY 11/27/14 Lisinopril 20 mg PO DAILY 11/27/14 Potassium Chloride [Potassium Chloride ER] 10 meq PO DAILYBK 11/27/14 Pravastatin Sodium [Pravachol] 40 mg PO BEDTIME 11/27/14 Insulin Detemir [Levemir] 40 unit SUBCU BID 02/22/15 Aspirin 325 mg PO QD 08/05/16 Gabapentin 300 mg PO DAILY 08/05/16 Insulin Lispro [Humalog] 15 units SC AC 08/05/16 Amoxicillin & Pot Clavulanate [Augmentin Tab] 875 mg PO Q12H #28 tab 01/29/17 Bifidobacterium Infantis [Align] 4 mg PO DAILY cap 01/29/17 Chlorhexidine Gluc 4% 15Ml [Hibiclens 15ml Unit Dose] 45 ml TOP DAILY ud 01/29/17 Doxycycline Hyclate [Vibramycin] 100 mg PO BID #28 cap 01/29/17 metroNIDAZOLE [Flagyl] 500 mg PO TID #30 tab 01/29/17 Transfer to Outside Facility - Transfer Information Decision to Transfer Date: 02/01/20 Decision to Transfer Time: 07:07 Reason for Transfer: required specialist not available Accepting Facility: [facility] <Navin Kwong - Last Filed: 02/01/20 07:07>
--- NOTE | 2020-02-01 06:34 | RAD ---
EXAM: XR Chest, 1 View CLINICAL HISTORY: CHF Cough TECHNIQUE: Frontal view of the chest. COMPARISON: 12/23/2019 FINDINGS: Lungs: No consolidation. Symmetrical vascular pattern. Pleural space: No pneumothorax or pleural effusion. Heart: Normal cardiac size and configuration. Mediastinum: No abnormality noted. Bones/joints: No osseous destruction or sclerosis noted. IMPRESSION: No abnormality noted. Electronically signed by: Elva Cisneros MD 02/01/2020 6:33 AM [employer] [facility]
--- NOTE | 2020-02-01 06:34 | RAD ---
EXAM: XR Right Foot Complete, 3 Views CLINICAL HISTORY: cellulitis TECHNIQUE: Frontal, lateral and oblique views of the right foot. COMPARISON: 12/23/2019 FINDINGS: Bones/joints: Postoperative hypertrophic changes at the 1st transmetatarsal amputation. 2nd phalanges have been removed. No acute osseous abnormality. There is a new focus of lucency within the posterior calcaneus subjacent to the base of a plantar calcaneal spur. No dislocation. Soft tissues: There is a cutaneous wound plantar surface over the posterior calcaneus. Possible packing material within the wound versus interval development calcification. IMPRESSION: 1. Interval development of mild lucency of the posterior calcaneus. Developing osteomyelitis not excluded. 2. There is a plantar cutaneous wound is at the level of the posterior calcaneus which may contain packing. Electronically signed by: Elva Cisneros MD 02/01/2020 6:32 AM [facility]
--- NOTE | 2020-02-01 07:34 | CT ---
EXAM: CT Angiography Chest With Intravenous Contrast CLINICAL HISTORY: r/o PE TECHNIQUE: Axial computed tomographic angiography images of the chest with intravenous contrast. Sagittal and coronal reformatted images were created and reviewed. This CT exam was performed using one or more of the following dose reduction techniques: automated exposure control, adjustment of the mA and/or kV according to patient size, and/or use of iterative reconstruction technique. MIP reconstructed images were created and reviewed. COMPARISON: At 1720 FINDINGS: Limitations: Respiratory motion limits assessment of the lungs. Pulmonary arteries: No abnormality noted. No pulmonary embolism. Aorta: No acute change noted. No thoracic aortic aneurysm. Lungs: See above. Pleural space: Trace residual bilateral posterior pleural effusions noted. No pneumothorax. Heart: Trace pericardial effusion now noted. There is coronary calcification. No cardiomegaly noted. No evidence of RV dysfunction. Bones/joints: No acute fracture. No dislocation. Soft tissues: No abnormality noted. Lymph nodes: No abnormality noted. No enlarged lymph nodes. IMPRESSION: 1. No pulmonary embolus noted. 2. Trace pericardial effusion now noted. Electronically signed by: Elva Cisneros MD 02/01/2020 7:33 AM [facility]
[2020-02-01 08:11] VITALS: BP 104/85; TEMP 98.7; O2SAT 98
== END 2020-02-01 08:55 | disposition short-term general hospital (02) ==
LOC: ER 05:46
DX: L03.115 Cellulitis of right lower limb (principal); R50.9 Fever, unspecified; R05 Cough; R00.0 Tachycardia, unspecified; I25.2 Old myocardial infarction; E11.9 Type 2 diabetes mellitus without complications; I11.0 Hypertensive heart disease with heart failure; I50.9 Heart failure, unspecified; K21.9 Gastro-esophageal reflux disease without esophagitis; Z20.828 Contact with and (suspected) exposure to other viral communicable diseases; Z89.421 Acquired absence of other right toe(s); Z79.899 Other long term (current) drug therapy; Z79.4 Long term (current) use of insulin; Z79.82 Long term (current) use of aspirin; Z86.73 Personal history of transient ischemic attack (TIA), and cerebral infarction without residual deficits; Z95.5 Presence of coronary angioplasty implant and graft; Z88.8 Allergy status to other drugs, medicaments and biological substances
CPT/HCPCS: 71045; 71275; 73630; 80053; 81001; 83605; 84484; 85025; 85610; 85651; 85730; 86140; 87040; 87186; 87635; 93005; J1940; J2543; J3370; J7030; J7050

== ENCOUNTER → 2020-04-05 | Outpatient (CLI) | payer MEDICARE | LOC: LAB.NP 11:16 | PROVIDERS: ATTEND Internal Medicine Infectious Disease | DX: E11.40 Type 2 diabetes mellitus with diabetic neuropathy, unspecified (principal); M86.171 Other acute osteomyelitis, right ankle and foot; B96.89 Other specified bacterial agents as the cause of diseases classified elsewhere; I73.9 Peripheral vascular disease, unspecified; I10 Essential (primary) hypertension; Z48.00 Encounter for change or removal of nonsurgical wound dressing; I25.10 Atherosclerotic heart disease of native coronary artery without angina pectoris; I50.9 Heart failure, unspecified; J44.9 Chronic obstructive pulmonary disease, unspecified; Z89.421 Acquired absence of other right toe(s); Z86.73 Personal history of transient ischemic attack (TIA), and cerebral infarction without residual deficits ==

== ENCOUNTER → 2020-04-08 | Outpatient (CLI) | payer MEDICARE | LOC: LAB.NP 17:37 | PROVIDERS: ATTEND Internal Medicine Infectious Disease | DX: Z45.2 Encounter for adjustment and management of vascular access device (principal); E11.621 Type 2 diabetes mellitus with foot ulcer; E11.40 Type 2 diabetes mellitus with diabetic neuropathy, unspecified; L97.319 Non-pressure chronic ulcer of right ankle with unspecified severity; M86.171 Other acute osteomyelitis, right ankle and foot; B96.89 Other specified bacterial agents as the cause of diseases classified elsewhere; I73.9 Peripheral vascular disease, unspecified; I10 Essential (primary) hypertension; I25.10 Atherosclerotic heart disease of native coronary artery without angina pectoris; I50.9 Heart failure, unspecified; J44.9 Chronic obstructive pulmonary disease, unspecified; Z89.421 Acquired absence of other right toe(s); Z86.73 Personal history of transient ischemic attack (TIA), and cerebral infarction without residual deficits ==

== ENCOUNTER → 2020-04-15 | Outpatient (CLI) | payer MEDICARE | LOC: LAB.NP 20:05 | PROVIDERS: ATTEND Internal Medicine Infectious Disease | DX: I10 Essential (primary) hypertension (principal); M86.171 Other acute osteomyelitis, right ankle and foot; B96.89 Other specified bacterial agents as the cause of diseases classified elsewhere; E11.40 Type 2 diabetes mellitus with diabetic neuropathy, unspecified; E11.621 Type 2 diabetes mellitus with foot ulcer; Z48.00 Encounter for change or removal of nonsurgical wound dressing; I73.9 Peripheral vascular disease, unspecified; F39 Unspecified mood [affective] disorder; I25.10 Atherosclerotic heart disease of native coronary artery without angina pectoris; I50.9 Heart failure, unspecified; J44.9 Chronic obstructive pulmonary disease, unspecified; Z89.421 Acquired absence of other right toe(s); Z86.73 Personal history of transient ischemic attack (TIA), and cerebral infarction without residual deficits ==

== ENCOUNTER → 2020-05-04 | Outpatient (CLI) | payer MEDICARE | LOC: LAB.NP 15:43 | PROVIDERS: ATTEND Internal Medicine Infectious Disease | DX: M86.171 Other acute osteomyelitis, right ankle and foot (principal); B96.89 Other specified bacterial agents as the cause of diseases classified elsewhere ==